=== PATIENT | male | born 1970 | race African-American/Black ===

== ENCOUNTER 2018-02-23 12:31 | Emergency (ER) | payer SELFPAY ==
[~2018-02-23] VITALS: Ht 175.3 cm; Wt 104.3 kg
[2018-02-23 12:40] VITALS: BP 153/91
[2018-02-23] MEDS ORDERED: CLIN300C8 PO (13:53)
--- NOTE | 2018-02-23 13:59 | PHYS DOC ---
Adult General Chief Complaint Chief Complaint: EYE PROBLEMS HPI HPI 47-year-old male presents with 4 day history of left-sided upper eyelid swelling. The patient has had hordeolum in the past, but they've never been this bad. He comes in today because this one has been draining for 2 days but continues to swell up every night. He has thick drainage and crusting. His vision is unchanged. He denies fever or chills. He has mild periorbital pain and a slight headache. Review of Systems Review of Systems Constitutional: Denies fever or chills [] Eyes: Swollen left eyelid[] HENT: Denies nasal congestion or sore throat [] Respiratory: Denies cough or shortness of breath [] Cardiovascular: No additional information not addressed in HPI [] GI: Denies abdominal pain, nausea, vomiting, bloody stools or diarrhea [] : Denies dysuria or hematuria [] Musculoskeletal: Denies back pain or joint pain [] Integument: Denies rash or skin lesions [] Neurologic: Denies headache, focal weakness or sensory changes [] Endocrine: Denies polyuria or polydipsia [] All other systems were reviewed and found to be within normal limits, except as documented in this note. Physical Exam Physical Exam Constitutional: Well developed, well nourished, no acute distress, non-toxic appearance. [] HENT: Swollen, erythematous left upper eyelid. There is purulent drainage along the eyelash border.[] Eyes: PERRLA, EOMI, conjunctiva normal, no discharge. [] Neck: Normal range of motion, no tenderness, supple, no stridor. [] Cardiovascular:Heart rate regular rhythm, no murmur [] Lungs & Thorax: Bilateral breath sounds clear to auscultation [] Abdomen: Bowel sounds normal, soft, no tenderness, no masses, no pulsatile masses. [] Skin: Warm, dry, no erythema, no rash. [] Back: No tenderness, no CVA tenderness. [] Extremities: No tenderness, no cyanosis, no clubbing, ROM intact, no edema. [] Neurologic: Alert and oriented X 3, normal motor function, normal sensory function, no focal deficits noted. [] Psychologic: Affect normal, judgement normal, mood normal. [] EKG EKG [] Radiology/Procedures Radiology/Procedures [] Course & Med Decision Making Course & Med Decision Making Pertinent Labs and Imaging studies reviewed. (See chart for details) I believe the patient has a hordeolum. He has thick drainage at this time. I cannot tell exactly where straining from. Given the drainage and continued inflammation I am mildly concerned about a cellulitis developing. I will go ahead and treat him with clindamycin for 7 days. Also advised to continue warm compresses multiple times a day. [] Dragon Disclaimer Dragon Disclaimer This electronic medical record was generated, in whole or in part, using a voice recognition dictation system. Departure Departure: Impression: Primary Impression: Hordeolum externum left upper eyelid Disposition: 01 HOME, SELF-CARE Condition: STABLE Patient Instructions: Sty Michelle Clindamycin Hcl (CLINDAMYCIN HCL) 300 Mg Capsule 1 CAP PO TID, #21 CAP Prov: SALIMA WRIGHT DO 02/23/18 SALIMA WRIGHT DO Feb 23, 2018 13:59
== END 2018-02-23 14:03 | disposition home or self-care (01) ==
LOC: ER 12:31
DX: H00.014 Hordeolum externum left upper eyelid (principal); R51 Headache
CPT/HCPCS: 99283

== ENCOUNTER 2018-04-04 16:40 | Inpatient (IN) | payer OTHER ==
[~2018-04-04] VITALS: Ht 175.3 cm; Wt 112.3 kg
[~2018-04-04 16:40] MED LIST: CLIN300C8 PO
[2018-04-04] MEDS ORDERED: IOHEXOL 300 MG/ML 75 ML VIAL. IV ONE (21:30)
[2018-04-04] MEDS ORDERED: IOHEXOL 240 MG/ML 50ML VIAL. PO ONE (21:30)
--- NOTE | 2018-04-04 22:06 | RAD ---
Indication: Abdominal pain, nausea, and vomiting. Technique: Axial images and coronal and sagittal reformatted images are provided. 75 mL of intravenous Omnipaque 300 was administered without complication. No comparison is available. One or more of the following individualized dose reduction techniques were utilized for this examination: 1. Automated exposure control 2. Adjustment of the mA and/or kV according to patient size 3. Use of iterative reconstruction technique Findings: There is atelectasis in the lung bases. There is a small right and trace left pleural effusion. Heart is not enlarged. There is mild fatty infiltration of the liver. Gallbladder is unremarkable. Spleen is not enlarged. Pancreas and adrenals are unremarkable. There is stranding of the perinephric fat. There is no urolithiasis. Both ureters are mildly prominent but without obstructing or nonobstructing stone apparent. Aorta is normal caliber with atheromatous disease. Lack of oral contrast limits evaluation of bowel. There is no dilated small bowel loop or mural thickening. There is questionable mural thickening in the descending colon versus incomplete distention. It is hard to exclude a mild colitis. There is no abscess or free air. Normal appendix is noted. There is bladder distention. Prostate is not enlarged. Calcified phleboliths are noted. Prostate calcifications are noted. There is subcutaneous edema. Bony structures are intact. IMPRESSION: 1. Questionable mural thickening in the descending colon, hard to exclude a mild colitis. 2. Bladder distention. 3. Mildly prominent ureters bilaterally without obstructing stone apparent. Correlate with concern for reflux. 4. Pleural effusions. Electronically signed by: Lalo Sanchez MD (04/04/2018 10:02 PM) [facility]
[2018-04-05] VITALS (7 sets, daily range): BP systolic 142–174; BP diastolic 75–104
--- NOTE | 2018-04-05 00:04 | RAD ---
PA chest and AP upright supine abdomen x-rays HISTORY: Abdominal pain, nausea and vomiting. FINDINGS: Mild cardiomegaly. Mild pleural effusions. No pneumothorax. Pulmonary interstitial thickening and allergies opacities likely edema although superimposed pneumonia is not excluded. No pneumoperitoneum. Left pelvic phleboliths. No dilated bowel loops or abnormal air-fluid levels to suggest obstruction. Bones unremarkable. IMPRESSION: No bowel obstruction evident. Pulmonary edema and small pleural effusions as described above. Electronically signed by: Sunny Edmondson MD (04/05/2018 12:01 AM) [facility]
--- NOTE | 2018-04-05 00:36 | ED.ADGEN ---
Past History Past Medical History: CHF, Diabetes, Hypertension Past Surgical History: No Surgical History Alcohol Use: None Drug Use: None Adult General Chief Complaint Chief Complaint ".. I got bad Lt. lower abd. pain... " HPI HPI Patient is a 47 year old male who presents with Lt. lower abd. pain. ( See hand written report while computer down) Review of Systems Review of Systems Constitutional: Denies fever or chills [] Eyes: Denies change in visual acuity, redness, or eye pain [] HENT: Denies nasal congestion or sore throat [] Respiratory: Denies cough or shortness of breath [] Cardiovascular: No additional information not addressed in HPI [] GI: Denies abdominal pain, nausea, vomiting, bloody stools or diarrhea [] : Denies dysuria or hematuria [] Musculoskeletal: Denies back pain or joint pain [] Integument: Denies rash or skin lesions [] Neurologic: Denies headache, focal weakness or sensory changes [] Endocrine: Denies polyuria or polydipsia [] All other systems were reviewed and found to be within normal limits, except as documented in this note. Family History Family History Hypertension Current Medications Current Medications Current Medications Medications (Trade) Dose Ordered Sig/Olivia Start Time Stop Time Status Last Admin Dose Admin Iohexol (Omnipaque 240 Mg/ml) 30 ml 1X ONCE 04/04/18 21:30 04/04/18 21:31 DC 04/04/18 21:48 30 ML Iohexol (Omnipaque 300 Mg/ml) 75 ml 1X ONCE 04/04/18 21:30 04/04/18 21:31 DC 04/04/18 21:48 75 ML See nursing for home meds Allergies Allergies Allergies Coded Allergies Type Severity Reaction Last Updated Verified No Known Drug Allergies 04/04/18 No Physical Exam Physical Exam Constitutional: Moderately acute distress, non-toxic appearance. [] HENT: Normocephalic, atraumatic, bilateral external ears normal, oropharynx moist, no oral exudates, nose normal. [] Eyes: PERRLA, EOMI, conjunctiva normal, no discharge. [] Neck: Normal range of motion, no tenderness, supple, no stridor. [] JVD Cardiovascular: Tachycardia Heart rate regular rhythm, no murmur []PMI to the left Lungs & Thorax: Bilateral breath sounds equal at apex with scattered wheezes and basilar crackles on auscultation [] Abdomen: Bowel sounds decreased, soft, lower tenderness, no masses, no pulsatile masses. Distended. Rebound to left lower Skin: Warm, diaphoretic, no erythema, no rash. [] Back: No tenderness, no CVA tenderness. [] Extremities: No tenderness, no cyanosis, no clubbing, ROM intact, no edema. [] Left psoas Neurologic: Alert and oriented X 3, normal motor function, normal sensory function, no focal deficits noted. [] Psychologic: Affect anxious, judgement normal, mood normal. [] Current Patient Data Lab Results Laboratory Tests Test 04/04/18 18:05 White Blood Count 12.2 x10^3/uL (4.0-11.0) H Red Blood Count 3.44 x10^6/uL (4.30-5.70) L Hemoglobin 11.0 g/dL (13.0-17.5) L Hematocrit 33.1 % (39.0-53.0) L Mean Corpuscular Volume 96 fL (79-100) Mean Corpuscular Hemoglobin 32 pg (25-35) Mean Corpuscular Hemoglobin Concent 33 g/dL (31-37) Red Cell Distribution Width 14.2 % (11.5-14.5) Platelet Count 316 x10^3/uL (140-400) Neutrophils (%) (Auto) 83 % (31-73) H Lymphocytes (%) (Auto) 9 % (24-48) L Monocytes (%) (Auto) 7 % (0-9) Eosinophils (%) (Auto) 1 % (0-3) Basophils (%) (Auto) 0 % (0-3) Neutrophils # (Auto) 10.1 x10^3uL (1.8-7.7) H Lymphocytes # (Auto) 1.1 x10^3/uL (1.0-4.8) Monocytes # (Auto) 0.8 x10^3/uL (0.0-1.1) Eosinophils # (Auto) 0.1 x10^3/uL (0.0-0.7) Basophils # (Auto) 0.0 x10^3/uL (0.0-0.2) Prothrombin Time 11.0 SEC (9.4-11.4) Prothrombin Time INR 1.1 (0.9-1.1) PTT 25 SEC (23-33) Urine Collection Type Unknown Urine Color Yellow Urine Clarity Clear Urine pH 5.5 Urine Specific [place] 1.025 Urine Protein >100 mg/dl (NEG-TRACE) Urine Glucose (UA) Neg mg/dL (NEG) Urine Ketones (Stick) Neg mg/dL (NEG) Urine Blood Large (NEG) Urine Nitrite Neg (NEG) Urine Bilirubin Neg (NEG) Urine Urobilinogen Dipstick 1 mg/dL (0.2 mg/dL) Urine Leukocyte Esterase Neg (NEG) Urine RBC 6-10 /HPF (0-2) Urine WBC 1-4 /HPF (0-4) Urine Squamous Epithelial Cells Few /LPF Urine Bacteria 0 /HPF (0-FEW) Urine Hyaline Casts Few /HPF Sodium Level 143 mmol/L (136-145) Potassium Level 3.4 mmol/L (3.5-5.1) L Chloride Level 108 mmol/L (98-107) H Carbon Dioxide Level 28 mmol/L (21-32) Anion Gap 7 (6-14) Blood Urea Nitrogen 17 mg/dL (8-26) Creatinine 1.3 mg/dL (0.7-1.3) Estimated GFR (Cockcroft-Gault) 71.6 Glucose Level 88 mg/dL (70-99) Calcium Level 8.7 mg/dL (8.5-10.1) Total Bilirubin 0.7 mg/dL (0.2-1.0) Direct Bilirubin 0.2 mg/dL (0.0-0.2) Aspartate Amino Transferase (AST) 38 U/L (15-37) H Alanine Aminotransferase (ALT) 68 U/L (16-63) H Alkaline Phosphatase 99 U/L (46-116) Creatine Kinase 789 U/L (39-308) H Creatine Kinase MB (Mass) 3.9 ng/mL (0.0-3.6) H Creatine Kinase MB Relative Index 0.5 % (0-4) Troponin I Quantitative 0.028 ng/mL (0-0.055) NR-Lmx-C-Type Natriuretic Peptide 1428 pg/mL (0-124) H Total Protein 6.8 g/dL (6.4-8.2) Albumin 3.1 g/dL (3.4-5.0) L Lipase 126 U/L (73-393) EKG EKG My interpretation EKG shows a sinus rhythm at 90 bpm.[] Radiology/Procedures Radiology/Procedures I interpretation of chest x-ray shows increased cephalization and cardiomegaly consistent with CHF Abdomen film shows no free air in the diaphragm. Course & Med Decision Making Course & Med Decision Making Pertinent Labs and Imaging studies reviewed. (See chart for details). Discussed presentation, testing and treatment plan with Dr.Madi- Zenon haywood for further treatment and evaluation of colitis. Cardiology consult for CHF. [] Final Impression Final Impression 1. Abd. Pain 2. Colitis 3. CHF 4. Leukocytosis 5. Anemia 6. Malnutrition[] Dragon Disclaimer Dragon Disclaimer This electronic medical record was generated, in whole or in part, using a voice recognition dictation system. CHRISTIANE KENDALL MD Apr 05, 2018 00:36
[2018-04-05] MEDS ORDERED: levoFLOXacin 500 MG TABLET PO ONE (01:00)
[2018-04-05] MEDS ORDERED: ONDANSETRON PF 4 MG/2 ML VIAL. IV PRN (01:00)
[2018-04-05] MEDS ORDERED: metroNIDAZOLE 500 MG TABLET PO ONE (01:15)
[2018-04-05] MEDS ORDERED: LISI40TA PO (02:47)
[2018-04-05] MEDS ORDERED: ATORVASTATIN CA80 MG PO (02:47)
[2018-04-05] MEDS ORDERED: FURO-68 PO (02:47)
[2018-04-05] MEDS ORDERED: INSU100I13 SQ (02:47)
[2018-04-05] MEDS ORDERED: CARV25TA2 PO (02:47)
--- NOTE | 2018-04-05 03:56 | EKG ---
[address] [id number] Test Date: 2018-04-04 Test Time: 18:23:23 Pat Name: GARRET WATTS Department: Room: 121 A Gender: M [employer] Attendant: : 1970 Requested By: CHRISTIANE KENDALL Order Number: [id number] Reading MD: Liban Ferrell MD Measurements Intervals [place] Rate: 90 P: 45 MA: 198 QRS: -3 QRSD: 82 T: 72 QT: 404 QTc: 499 Interpretive Statements SINUS RHYTHM Electronically Signed On 04-09-2018 10:54:45 CDT by Liban Ferrell MD
[2018-04-05 06:58] LABS: HEMATOCRIT 33.1 % (39.0-53.0); MEAN CORPUSCULAR HEMOGLOBIN 32 pg (25-35); MEAN CORPUSCULAR VOLUME 96 fL (79-100); RED BLOOD COUNT 3.44 x10^6/uL (4.30-5.70); WHITE BLOOD COUNT 12.2 x10^3/uL (4.0-11.0)
[2018-04-05 06:59] LABS: BASO % 0 % (0-3); EOS # 0.1 x10^3/uL (0.0-0.7); EOS % 1 % (0-3); LYMPH # 1.1 x10^3/uL (1.0-4.8); LYMPH % 9 % (24-48); MEAN CORPUSCULAR HGB CONC 33 g/dL (31-37); MONO # 0.8 x10^3/uL (0.0-1.1); MONO % 7 % (0-9); NEUT # 10.1 x10^3uL (1.8-7.7); NEUT % 83 % (31-73); PLATELET COUNT 316 x10^3/uL (140-400); RED CELL DISTRIBUTION WIDTH 14.2 % (11.5-14.5)
[2018-04-05 07:02] LABS: ALBUMIN 3.1 g/dL (3.4-5.0); CALCIUM 8.7 mg/dL (8.5-10.1); CREATININE 1.3 mg/dL (0.7-1.3); DIRECT BILIRUBIN 0.2 mg/dL (0.0-0.2); GFR 71.6; POTASSIUM 3.4 mmol/L (3.5-5.1); TOTAL BILIRUBIN 0.7 mg/dL (0.2-1.0); TOTAL PROTEIN 6.8 g/dL (6.4-8.2)
[2018-04-05 07:08] LABS: BILIRUBIN,URINE NEG (NEG); CLARITY,URINE CLEAR; COLOR,URINE YELLOW; GLUCOSE,URINE NEG (NEG)
[2018-04-05 07:09] LABS: NITRITE,URINE NEG (NEG); UROBILINOGEN,URINE 1 mg/dL (0.2 mg/dL)
[2018-04-05 07:10] LABS: BACTERIA,URINE 0 /HPF (0-FEW); HYALINE CASTS, URINE FEW /HPF; SQUAMOUS EPITHELIAL CELL,UR FEW /LPF
[2018-04-05] MEDS: INSULIN LISPRO 300 UNITS/3 ML INSULN.PEN. SQ SCH ×3 (08:00→17:00)
[2018-04-05] MEDS ORDERED: POTASSIUM CHLORIDE 20 MEQ TABLET.ER. PO ONE (08:00)
[2018-04-05] MEDS ORDERED: DEXTROSE 50% 25 GM / 50ML DISP.SYRIN. IV PRN (08:00)
[2018-04-05] MEDS: levoFLOXacin 500 MG TABLET PO SCH (08:37)
[2018-04-05] MEDS: CARVEDILOL 12.5 MG TABLET PO SCH ×2 (08:37→17:22)
[2018-04-05] MEDS: FUROSEMIDE 40 MG/4 ML VIAL IVP SCH (08:38)
--- NOTE | 2018-04-05 09:09 | PDOC2 ---
CARAMIGUELANGEL Cassie [employer]ANITIES DIVISION CHAIR 04/05/18 0909: CONSULT Date of Admission DATE: 04/05/18 TIME: 09:03 Reason for Consult: CHF, HTN Problem List Problems Medical Problems: (1) Abdominal pain Status: Acute History of Present Illness Mr Garcia is a 47 year old male who moved here within the last 6 months from [place]. He has history of NICM, CHF, HTN and diabetes. He presents with complaints of sudden onset of severe abdominal pain. He denies any nausea, vomiting, diarrhea, fever, chills. He was noted to have mild pulmonary congestion so consult was called. He does report that he has had more dyspnea on exertion in the last couple weeks limiting his functional capacity to about 20 yards. He complains of 3 pillow orthopnea for several days and episodes of PND. He reports chronic mild edema without significant increase but does think he is carrying more fluid around his abdomen. He reports a 30lb weight gain since moving here. He denies any chest discomfort, palpitations, lightheadedness or syncope. He reports that his cardiac function was initially at 30 % but that he needed no stents during heart cath. He says that during follow up prior to moving he was told that his heart function had normalized. He has not established with a scalloper since moving here. Cardiovascular: CHF, HTN, AL, hyperipidemia GI: Other (colitis) Endocrine: Diabetes Past Surgical History non contributory Family History: Kidney Disease, Other (CHF, Arthritis) Social History non smoker, no significant ETOH, no illicit drug use. He reports prior history fo ETOH but had stopped drinking prior to diagnosis of CMP. Current Medications Current Medications Iohexol (Omnipaque 240 Mg/ml) 30 ml 1X ONCE PO Last administered on 04/04/18at 21:48; Start 04/04/18 at 21:30; Stop 04/04/18 at 21:31; Status DC Iohexol (Omnipaque 300 Mg/ml) 75 ml 1X ONCE IV Last administered on 04/04/18at 21:48; Start 04/04/18 at 21:30; Stop 04/04/18 at 21:31; Status DC Levofloxacin (Levaquin) 500 mg 1X ONCE PO Last administered on 04/05/18at 02:40 ; Start 04/05/18 at 01:00; Stop 04/05/18 at 01:07; Status DC Metronidazole (Flagyl) 500 mg 1X ONCE PO Last administered on 04/05/18at 02:40 ; Start 04/05/18 at 01:15; Stop 04/05/18 at 01:16; Status DC Ondansetron HCl (Zofran) 4 mg PRN Q4HRS PRN IV NAUSEA/VOMITING; Start 04/05/18 at 01:00; Stop 04/06/18 at 00:59 Metronidazole 100 ml @ 100 mls/hr Q8HRS IV Last administered on 04/05/18at 05: 41; Start 04/05/18 at 06:00 Levofloxacin (Levaquin) 500 mg DAILY PO Last administered on 04/05/18at 08:37; Start 04/05/18 at 09:00 Furosemide (Lasix) 40 mg DAILY IVP Last administered on 04/05/18at 08:38; Start 04/05/18 at 09:00 Carvedilol (Coreg) 25 mg BIDWMEALS PO Last administered on 04/05/18at 08:37; Start 04/05/18 at 08:00 Insulin Human Lispro (HumaLOG) 0-5 UNITS TIDWMEALS SQ ; Start 04/05/18 at 08:00 Dextrose 12.5 gm PRN Q15MIN PRN IV SEE COMMENTS; Start 04/05/18 at 08:00 Potassium Chloride (Klor-Con) 40 meq 1X ONCE PO Last administered on at 08:38; Start 04/05/18 at 08:00; Stop 04/05/18 at 08:10; Status DC Active Scripts Active Reported Lantus Solostar (Insulin Glargine,Hum.rec.anlog) 100 Unit/1 Ml Insuln.pen 30 Unit SQ BID Lisinopril 40 Mg Tablet 40 Mg PO BID LAST DOSE GIVEN: DATE: TIME: NEXT DOSE DUE: DATE: TIME: Atorvastatin Calcium 80 Mg Tablet 80 Mg PO QHS LAST DOSE GIVEN: DATE: TIME: NEXT DOSE DUE: DATE: TIME: Carvedilol 25 Mg Tablet 25 Mg PO BIDWMEALS LAST DOSE GIVEN: DATE: TIME: NEXT DOSE DUE: DATE: TIME: Lasix (Furosemide) 40 Mg Tablet 40 Mg PO BID LAST DOSE GIVEN: DATE: TIME: NEXT DOSE DUE: DATE: TIME: Allergies: Coded Allergies: No Known Drug Allergies (Unverified , 04/04/18) Review of System as per HPI VITALS Vital Signs Date Time Temp Pulse Resp B/P (MAP) Pulse Ox O2 Delivery O2 Flow Rate FiO2 04/05/18 08:37 75 154/98 04/05/18 05:12 98.2 20 94 Room Air Labs Laboratory Tests Test 04/04/18 18:05 04/05/18 05:20 04/05/18 07:23 White Blood Count 12.2 x10^3/uL (4.0-11.0) Red Blood Count 3.44 x10^6/uL (4.30-5.70) Hemoglobin 11.0 g/dL (13.0-17.5) Hematocrit 33.1 % (39.0-53.0) Mean Corpuscular Volume 96 fL (79-100) Mean Corpuscular Hemoglobin 32 pg (25-35) Mean Corpuscular Hemoglobin Concent 33 g/dL (31-37) Red Cell Distribution Width 14.2 % (11.5-14.5) Platelet Count 316 x10^3/uL (140-400) Neutrophils (%) (Auto) 83 % (31-73) Lymphocytes (%) (Auto) 9 % (24-48) Monocytes (%) (Auto) 7 % (0-9) Eosinophils (%) (Auto) 1 % (0-3) Basophils (%) (Auto) 0 % (0-3) Neutrophils # (Auto) 10.1 x10^3uL (1.8-7.7) Lymphocytes # (Auto) 1.1 x10^3/uL (1.0-4.8) Monocytes # (Auto) 0.8 x10^3/uL (0.0-1.1) Eosinophils # (Auto) 0.1 x10^3/uL (0.0-0.7) Basophils # (Auto) 0.0 x10^3/uL (0.0-0.2) Prothrombin Time 11.0 SEC (9.4-11.4) Prothromb Time International Ratio 1.1 (0.9-1.1) Activated Partial Thromboplast Time 25 SEC (23-33) Urine Collection Type Unknown Urine Color Yellow Urine Clarity Clear Urine pH 5.5 Urine Specific [place] 1.025 Urine Protein >100 mg/dl (NEG-TRACE) Urine Glucose (UA) Neg mg/dL (NEG) Urine Ketones (Stick) Neg mg/dL (NEG) Urine Blood Large (NEG) Urine Nitrite Neg (NEG) Urine Bilirubin Neg (NEG) Urine Urobilinogen Dipstick 1 mg/dL (0.2 mg/dL) Urine Leukocyte Esterase Neg (NEG) Urine RBC 6-10 /HPF (0-2) Urine WBC 1-4 /HPF (0-4) Urine Squamous Epithelial Cells Few /LPF Urine Bacteria 0 /HPF (0-FEW) Urine Hyaline Casts Few /HPF Sodium Level 143 mmol/L (136-145) Potassium Level 3.4 mmol/L (3.5-5.1) Chloride Level 108 mmol/L (98-107) Carbon Dioxide Level 28 mmol/L (21-32) Anion Gap 7 (6-14) Blood Urea Nitrogen 17 mg/dL (8-26) Creatinine 1.3 mg/dL (0.7-1.3) Estimated GFR (Cockcroft-Gault) 71.6 Glucose Level 88 mg/dL (70-99) Calcium Level 8.7 mg/dL (8.5-10.1) Total Bilirubin 0.7 mg/dL (0.2-1.0) Direct Bilirubin 0.2 mg/dL (0.0-0.2) Aspartate Amino Transf (AST/SGOT) 38 U/L (15-37) Alanine Aminotransferase (ALT/SGPT) 68 U/L (16-63) Alkaline Phosphatase 99 U/L (46-116) Creatine Kinase 789 U/L (39-308) Creatine Kinase MB (Mass) 3.9 ng/mL (0.0-3.6) Creatine Kinase MB Relative Index 0.5 % (0-4) Troponin I Quantitative 0.028 ng/mL (0-0.055) 0.028 ng/mL (0-0.055) [place]-Kpo-Q-Type Natriuretic Peptide 1428 pg/mL (0-124) Total Protein 6.8 g/dL (6.4-8.2) Albumin 3.1 g/dL (3.4-5.0) Lipase 126 U/L (73-393) Glucose (Fingerstick) 67 mg/dL (70-99) Images CXR - pending EKG - pending CT abd/pelvis - IMPRESSION: 1. Questionable mural thickening in the descending colon, hard to exclude a mild colitis. 2. Bladder distention. 3. Mildly prominent ureters bilaterally without obstructing stone apparent. Correlate with concern for reflux. 4. Pleural effusions. Acute abd - IMPRESSION: No bowel obstruction evident. Pulmonary edema and small pleural effusions as described above. Assessment/Plan 1. Acute decompensation of likely diastolic heart failure - reported NICM with normalized EF last year. echo for LV function. continue diuresis. Coreg and lisinopril added. agree with diuresis. request records. 2. accelerated hypertension - coreg started, add lisinopril. Improved control. May consider outpatient renal duplex if pressures are difficult to control on current Rx. 3. colitis - per IM 4. Hyperlipidemia - check lipids 5. hypokalemia - replace 6. diabetes mellitus - per IM MELVI PLAZA MD 04/05/18 1645: CONSULT Assessment/Plan 1. Acute decompensation of probable diastolic heart failure - reported NICM with normalized EF last year. Continue diuresis. Add Coreg and lisinopril. Echocardiogram today for LV function. Echo for LV function. 2. accelerated hypertension - improving today. Addition of Coreg and lisinopril as above. 3. colitis - per IM 4. Hyperlipidemia - check lipids 5. hypokalemia - replace 6. diabetes mellitus - per IM MIGUELANGEL MARROQUIN APRN Apr 05, 2018 09:09 MELVI PLAZA MD Apr 05, 2018 16:45
--- NOTE | 2018-04-05 15:04 | HP ---
ADMIT DATE: 04/05/2018 HISTORY OF PRESENT ILLNESS: The patient is a 47-year-old male patient who came to the Emergency Room with a complaint of left lower abdominal pain. He also complained of nausea, vomited once, and came to the Emergency Room. His pain was extremely severe and intolerable. He denied any diarrhea. Denied any chills, rigors, or fever and he was evaluated in the Emergency Room and was found to have mural thickening of the descending colon. It is hard to exclude mild colitis. He had bladder distention and mildly prominent ureters bilaterally without obstructing stones apparent with concern for reflux. He has also pleural effusion. He was admitted and was started on levofloxacin as well as Flagyl for treatment of colitis. PAST MEDICAL HISTORY: Significant for hypertension, type 2 diabetes, hyperlipidemia. He apparently also known to have nonischemic cardiomyopathy with an ejection fraction of only 30%. He has also history of right groin abscess. PAST SURGICAL HISTORY: Right groin abscess incision and drainage and application of wound VAC. ALLERGIES: The patient has no known drug allergies. MEDICATIONS: He is currently on following medications: He is on atorvastatin calcium 80 mg at bedtime, carvedilol 25 mg twice a day, lisinopril 40 mg twice a day, furosemide 40 mg twice a day. He is on Lantus insulin 30 units twice a day. FAMILY HISTORY: He has 1 older brother who is healthy. He does not know his biological father. His mother is alive, currently on hemodialysis for end-stage renal disease. She has hypertension and rheumatoid arthritis. SOCIAL HISTORY: He is , has 1 biological daughter. He never smoked, does not drink alcohol or use recreational drugs. 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 REVIEW OF SYSTEMS: The patient denied any blurring of vision, cataract, glaucoma, or macular degeneration. Denied any earache, tinnitus, or sensorineural deafness. Denied any nosebleeds, stuffy nose, or postnasal drip. Denied any sore throat, sore tongue, toothache, hoarseness of voice, or difficulty swallowing. Denied any nausea, vomiting, diarrhea, or constipation. Denied any hematemesis, melena, or hematochezia. Denied any dysuria or frequency. He denied any chest pain. Did complain of shortness of breath, cough, phlegm, or hemoptysis. PHYSICAL EXAMINATION: GENERAL: When I examined him, he looked well and was clearly in no apparent respiratory distress. No pallor, jaundice, cyanosis, or thyromegaly. No jugular venous distension. He has mild bilateral limb edema, more so on the left than right. VITAL SIGNS: His heart rate was 81, blood pressure was 142/84, temperature was 98.3, respiratory rate was 18, and oxygen saturation was 95% on room air. HEAD, EYES, EARS, NOSE, AND THROAT: Showed normocephalic, atraumatic. NECK: Supple. HEART: Showed normal first and second heart sounds with no gallop, rub, or murmur. CHEST: Clear to auscultation. No crepitation or rhonchi. ABDOMEN: Distended, soft, nontender. No guarding or rigidity. No organomegaly. All hernial orifices intact. Bowel sounds normal. NEUROLOGIC: He was awake, alert, responding appropriately. Cranial nerves intact. He moves his extremities without difficulty and ambulates without assistance or assistive devices. LABORATORY DATA: His lab work this morning showed a white cell count of 12,200, hemoglobin 11, hematocrit 33, MCV 96, and platelet count of 316,000 with normal manual differential. His chemistry showed serum sodium of 143, potassium 3.4, chloride 108, bicarbonate 28, anion gap of 7, BUN 17, creatinine 1.3, estimated GFR was 71 mL per minute. Her glucose was 88, calcium was 8.7. Total bilirubin and alkaline phosphatase normal. AST and ALT slightly elevated. His CK was high at 789. First set of cardiac enzymes showed troponin to be 0.028. B-type natriuretic peptide was 1428. Total protein was 6.8, albumin 3.1. Lipase was 126. His prothrombin time was 11, INR 1.1, aPTT was 25. Urinalysis showed the urine was yellow, clear, with a pH of 5.5, specific gravity of 1.025 with large amount of protein. The urine was negative for glucose and ketones, there was large amount of blood, negative for nitrite and leukocyte esterase. There were 6-10 rbc's, 1-4 wbc's, and very few bacteria. He has an acute abdomen series which showed mild cardiomegaly, mild pleural effusion, no pneumothorax, pulmonary interstitial thickening and opacities, likely edema, although superimposed pneumonia is not excluded. No pneumoperitoneum, left pelvic phlebitis, no dilated bowel loops or abnormal air fluid levels to suggest obstruction. Bones are unremarkable. ASSESSMENT AND PLAN: The patient was admitted with abdominal pain due to colitis. He was also diagnosed with congestive heart failure, leukocytosis, anemia, and malnutrition. He was started on IV Flagyl and oral levofloxacin. Continue with all his other medications. We did consult the cardiology team given that he has nonischemic cardiomyopathy. We did receive some records from his hospital in [place]. GUANAKO YOUNG MD DR: MONSERRAT/deann JOB#: [id number] / [id number]
[2018-04-05] MEDS: LISINOPRIL 5 MG TABLET. PO SCH (15:20)
[2018-04-05] MEDS: LACTOBACILLUS RHAMNOSUS GG 1 CAPSULE. PO SCH (20:40)
[2018-04-06 05:46] VITALS: BP 145/88
[2018-04-06 06:13] LABS: HEMOGLOBIN 10.4 g/dL (13.0-17.5); RED BLOOD COUNT 3.13 x10^6/uL (4.30-5.70); RED CELL DISTRIBUTION WIDTH 13.7 % (11.5-14.5)
[2018-04-06 06:33] LABS: ALBUMIN 2.9 g/dL (3.4-5.0); ALBUMIN/GLOBULIN RATIO 0.8 (1.0-1.7); C REACTIVE PROTEIN 1.9 mg/L (0-3.3); CALCIUM 8.8 mg/dL (8.5-10.1); CREATININE 1.6 mg/dL (0.7-1.3); GFR 56.3; POTASSIUM 3.9 mmol/L (3.5-5.1); TOTAL BILIRUBIN 0.9 mg/dL (0.2-1.0); TOTAL PROTEIN 6.5 g/dL (6.4-8.2)
[2018-04-06] MEDS: CARVEDILOL 12.5 MG TABLET PO SCH ×2 (07:41→17:16)
[2018-04-06] MEDS: INSULIN LISPRO 300 UNITS/3 ML INSULN.PEN. SQ SCH ×3 (08:00→17:00)
[2018-04-06] MEDS: POTASSIUM CHLORIDE 20 MEQ TABLET.ER. PO SCH (08:11)
[2018-04-06] MEDS: LACTOBACILLUS RHAMNOSUS GG 1 CAPSULE. PO SCH ×2 (08:39→21:14)
[2018-04-06] MEDS: levoFLOXacin 500 MG TABLET PO SCH (08:39)
[2018-04-06] MEDS: LISINOPRIL 5 MG TABLET. PO SCH (08:40)
[2018-04-06] MEDS: FUROSEMIDE 40 MG/4 ML VIAL IVP SCH (08:40)
[2018-04-06 11:00] VITALS: BP 143/89
[2018-04-06 16:00] VITALS: BP_SYST 134; BP_SYST 137; BP_DIAS 78; BP_DIAS 90
[2018-04-06 19:10] VITALS: BP 143/87
--- NOTE | 2018-04-06 19:40 | PDOC ---
SUBJECTIVE: Patient states he's had no recurrance of abdominal pain since sometime yesterday. Appetite intact, no nausea or vomitting, no BM however he is passing gas. He feels lack of BM is due to his liquid diet, he wants to know if we can advance his diet. Cardiology has seen the patient and reviewed his echocardiogram and a prior. Patient currently at his baseline, they recommend continue diuresis and have added coreg and lisinopril. They advised patient to follow up with them outpatient in two weeks. Patient's vitals have been stable and other than hunger he denies any complaints. OBJECTIVE: Problems: Problems Medical Problems: (1) Abdominal pain Status: Acute BUN 17, Cr 1.6 h/o CKD. ESR 18, WBC 12.2 from 10 yesterday, Hb 11 from 10.4. Vital Signs: Vital Signs Date Time Temp Pulse Resp B/P (MAP) Pulse Ox O2 Delivery O2 Flow Rate FiO2 04/06/18 19:10 98.0 70 20 143/87 (105) 98 Room Air I & O Intake and Output 04/06/18 06:59 Intake Total 1680 ml Output Total 1225 ml Balance 455 ml Intake Oral 1680 ml Output Urine Total 1225 ml Labs: Laboratory Tests Test 04/05/18 05:20 04/05/18 07:23 04/05/18 09:25 04/05/18 11:08 Troponin I Quantitative 0.028 ng/mL (0-0.055) 0.018 ng/mL (0-0.055) Triglycerides Level 44 mg/dL (0-150) Cholesterol Level 91 mg/dL (0-200) LDL Cholesterol, Calculated 42 mg/dL (0-100) VLDL Cholesterol, Calculated 8 mg/dL (0-40) Non-HDL Cholesterol Calculated 50 mg/dL (0-129) HDL Cholesterol 41 mg/dL (40-60) Cholesterol/HDL Ratio 2.0 Glucose (Fingerstick) 67 mg/dL (70-99) 79 mg/dL (70-99) Test 04/05/18 16:49 04/05/18 20:26 04/06/18 05:45 04/06/18 07:48 Glucose (Fingerstick) 61 mg/dL (70-99) 131 mg/dL (70-99) 98 mg/dL (70-99) White Blood Count 10.0 x10^3/uL (4.0-11.0) Red Blood Count 3.13 x10^6/uL (4.30-5.70) Hemoglobin 10.4 g/dL (13.0-17.5) Hematocrit 30.0 % (39.0-53.0) Mean Corpuscular Volume 96 fL (79-100) Mean Corpuscular Hemoglobin 33 pg (25-35) Mean Corpuscular Hemoglobin Concent 35 g/dL (31-37) Red Cell Distribution Width 13.7 % (11.5-14.5) Platelet Count 284 x10^3/uL (140-400) Erythrocyte Sedimentation Rate 18 (0-15) Sodium Level 141 mmol/L (136-145) Potassium Level 3.9 mmol/L (3.5-5.1) Chloride Level 105 mmol/L (98-107) Carbon Dioxide Level 30 mmol/L (21-32) Anion Gap 6 (6-14) Blood Urea Nitrogen 17 mg/dL (8-26) Creatinine 1.6 mg/dL (0.7-1.3) Estimated GFR (Cockcroft-Gault) 56.3 BUN/Creatinine Ratio 11 (6-20) Glucose Level 96 mg/dL (70-99) Calcium Level 8.8 mg/dL (8.5-10.1) Total Bilirubin 0.9 mg/dL (0.2-1.0) Aspartate Amino Transf (AST/SGOT) 21 U/L (15-37) Alanine Aminotransferase (ALT/SGPT) 50 U/L (16-63) Alkaline Phosphatase 89 U/L (46-116) C-Reactive Protein 1.9 mg/L (0-3.3) Total Protein 6.5 g/dL (6.4-8.2) Albumin 2.9 g/dL (3.4-5.0) Albumin/Globulin Ratio 0.8 (1.0-1.7) Test 04/06/18 12:05 04/06/18 17:30 Glucose (Fingerstick) 123 mg/dL (70-99) 115 mg/dL (70-99) Physical Exam: GEN: NAD, AOx3, up in chair talking with visitors on my arrival HEENT: NCAT, membranes moist, nose/throat clear NECK: supple, no lymphadenopathy CVS: normal cardiac sounds no murmur PULM: CTAB with good air movment no respiratory distress ABD: mildly distended, soft, no tenderness, good BS x 4 EXT: 2+ pitting LE edema b/l (pt states baseline), no clubbing or cyanosis NEURO: CN II-XII appear intact, no lateralizing deficits ASSESSMENT: 1. Colitis (improving, will advance diet) 2. Hematuria (repeat UA) 3. Acute decompensation NICM: continue diuresis per cardio 4. HTN: continue coreg/lisinopril per cardio PLAN: If tolerates diet and no setbacks plan d/c home tomorrow VICKY PETIT DO Apr 06, 2018 19:40
[2018-04-07 05:44] LABS: BILIRUBIN,URINE NEG (NEG); CLARITY,URINE CLEAR; COLOR,URINE YELLOW; GLUCOSE,URINE NEG (NEG)
[2018-04-07 05:45] LABS: BACTERIA,URINE 0 /HPF (0-FEW); NITRITE,URINE NEG (NEG); RBC,URINE RARE /HPF (0-2); SQUAMOUS EPITHELIAL CELL,UR OCC /LPF; UROBILINOGEN,URINE 0.2 mg/dL (0.2 mg/dL); WBC,URINE RARE /HPF (0-4)
[2018-04-07 05:59] VITALS: BP 149/87
[2018-04-07] MEDS ORDERED: LEVO500T59 PO (08:48)
[2018-04-07] MEDS ORDERED: FURO-68 PO (08:48)
[2018-04-07] MEDS ORDERED: POTA20TA4 PO (08:48)
[2018-04-07] MEDS ORDERED: LISI-338 PO (08:48)
[2018-04-07] MEDS ORDERED: METR500T PO (08:48)
[2018-04-07] MEDS: LISINOPRIL 5 MG TABLET. PO SCH (08:57)
[2018-04-07] MEDS: LACTOBACILLUS RHAMNOSUS GG 1 CAPSULE. PO SCH (08:57)
[2018-04-07] MEDS: FUROSEMIDE 40 MG/4 ML VIAL IVP SCH (08:58)
[2018-04-07] MEDS: levoFLOXacin 500 MG TABLET PO SCH (08:58)
[2018-04-07] MEDS: POTASSIUM CHLORIDE 20 MEQ TABLET.ER. PO SCH (08:58)
[2018-04-07] MEDS ORDERED: DOCUSATE SODIUM 100 MG CAPSULE PO SCH (09:00)
[2018-04-07 09:02] VITALS: BP 149/87
[2018-04-07] MEDS: CARVEDILOL 12.5 MG TABLET PO SCH (09:02)
--- NOTE | 2018-04-07 10:06 | PDOC3 ---
Discharge Summary Visit Information Date of Admission: Apr 05, 2018 Date of Discharge: Apr 07, 2018 Admitting Diagnosis: colitis, congestive heart failure, anemia, malnutrition Final Diagnosis Problems Medical Problems: (1) Abdominal pain Status: Acute Brief Hospital Course Allergies Allergies Coded Allergies Type Severity Reaction Last Updated Verified No Known Drug Allergies 04/04/18 No Vital Signs Vital Signs Date Time Temp Pulse Resp B/P (MAP) Pulse Ox O2 Delivery O2 Flow Rate FiO2 04/07/18 09:02 69 149/87 04/07/18 05:59 97.8 18 97 Room Air Lab Results Laboratory Tests Test 04/05/18 11:08 04/05/18 16:49 04/05/18 20:26 04/06/18 05:45 Glucose (Fingerstick) 79 mg/dL (70-99) 61 mg/dL (70-99) 131 mg/dL (70-99) White Blood Count 10.0 x10^3/uL (4.0-11.0) Red Blood Count 3.13 x10^6/uL (4.30-5.70) Hemoglobin 10.4 g/dL (13.0-17.5) Hematocrit 30.0 % (39.0-53.0) Mean Corpuscular Volume 96 fL (79-100) Mean Corpuscular Hemoglobin 33 pg (25-35) Mean Corpuscular Hemoglobin Concent 35 g/dL (31-37) Red Cell Distribution Width 13.7 % (11.5-14.5) Platelet Count 284 x10^3/uL (140-400) Erythrocyte Sedimentation Rate 18 (0-15) Sodium Level 141 mmol/L (136-145) Potassium Level 3.9 mmol/L (3.5-5.1) Chloride Level 105 mmol/L (98-107) Carbon Dioxide Level 30 mmol/L (21-32) Anion Gap 6 (6-14) Blood Urea Nitrogen 17 mg/dL (8-26) Creatinine 1.6 mg/dL (0.7-1.3) Estimated GFR (Cockcroft-Gault) 56.3 BUN/Creatinine Ratio 11 (6-20) Glucose Level 96 mg/dL (70-99) Calcium Level 8.8 mg/dL (8.5-10.1) Total Bilirubin 0.9 mg/dL (0.2-1.0) Aspartate Amino Transf (AST/SGOT) 21 U/L (15-37) Alanine Aminotransferase (ALT/SGPT) 50 U/L (16-63) Alkaline Phosphatase 89 U/L (46-116) C-Reactive Protein 1.9 mg/L (0-3.3) Total Protein 6.5 g/dL (6.4-8.2) Albumin 2.9 g/dL (3.4-5.0) Albumin/Globulin Ratio 0.8 (1.0-1.7) Test 04/06/18 07:48 04/06/18 12:05 04/06/18 17:30 04/06/18 20:43 Glucose (Fingerstick) 98 mg/dL (70-99) 123 mg/dL (70-99) 115 mg/dL (70-99) 174 mg/dL (70-99) Test 04/07/18 05:20 04/07/18 07:25 Urine Collection Type Unknown Urine Color Yellow Urine Clarity Clear Urine pH 5.0 Urine Specific [place] 1.010 Urine Protein 100 mg/dl (NEG-TRACE) Urine Glucose (UA) Neg mg/dL (NEG) Urine Ketones (Stick) Neg mg/dL (NEG) Urine Blood Mod (NEG) Urine Nitrite Neg (NEG) Urine Bilirubin Neg (NEG) Urine Urobilinogen Dipstick 0.2 mg/dL (0.2 mg/dL) Urine Leukocyte Esterase Trace (NEG) Urine RBC Rare /HPF (0-2) Urine WBC Rare /HPF (0-4) Urine Squamous Epithelial Cells Occ /LPF Urine Bacteria 0 /HPF (0-FEW) Glucose (Fingerstick) 156 mg/dL (70-99) Brief Hospital Course Mr. Garcia is a 47 old male who presented with sudden onset severe left lower quadrant abdominal pain on April 05 to the emergency department. The pain was so severe had him doubled over and he had episodes of nausea and emesis. He was extensively evaluated in the emergency department and CT evaluation revealed some colon wall thickening consistent with colitis. IV hydration as well as Levaquin and Flagyl were initiated. Patient was also noted to be in congestive heart failure, he had prior history of nonischemic cardiomyopathy with an ejection fraction of 30%. The cardiology team was consulted and an echocardiogram revealed the patient's cardiac function was at his baseline. Medication adjustments included Coreg, lisinopril, Lasix, and potassium and the patient was advised to follow-up with his bread packer Dr. Bardales as soon as possible upon hospital discharge. The patient has had no abdominal pain since day 1 of his hospital stay. His diet was advanced yesterday and he's been eating and drinking well. He still hasn't had a bowel movement but has had the urge to and has been passing gas. He reports he feels as if he is fully recovered and is requesting discharge today. Discharge Information Condition at Discharge: Improved Follow Up: Weeks (follow-up with Dr. Johnson this week and with Dr. Bardales for next available evaluation.) Disposition/Orders: D/C to Home Dischare Medications Current Medications Iohexol (Omnipaque 240 Mg/ml) 30 ml 1X ONCE PO Last administered on 04/04/18at 21:48; Start 04/04/18 at 21:30; Stop 04/04/18 at 21:31; Status DC Iohexol (Omnipaque 300 Mg/ml) 75 ml 1X ONCE IV Last administered on 04/04/18at 21:48; Start 04/04/18 at 21:30; Stop 04/04/18 at 21:31; Status DC Levofloxacin (Levaquin) 500 mg 1X ONCE PO Last administered on 04/05/18at 02:40 ; Start 04/05/18 at 01:00; Stop 04/05/18 at 01:07; Status DC Metronidazole (Flagyl) 500 mg 1X ONCE PO Last administered on 04/05/18at 02:40 ; Start 04/05/18 at 01:15; Stop 04/05/18 at 01:16; Status DC Ondansetron HCl (Zofran) 4 mg PRN Q4HRS PRN IV NAUSEA/VOMITING; Start 04/05/18 at 01:00; Stop 04/06/18 at 00:59; Status DC Metronidazole 100 ml @ 100 mls/hr Q8HRS IV Last administered on 04/07/18at 05: 10; Start 04/05/18 at 06:00 Levofloxacin (Levaquin) 500 mg DAILY PO Last administered on 04/07/18 08:58; Start 04/05/18 at 09:00 Furosemide (Lasix) 40 mg DAILY IVP Last administered on 7/15/18at 08:58; Start 04/05/18 at 09:00 Carvedilol (Coreg) 25 mg BIDWMEALS PO Last administered on 04/07/18at 09:02; Start 04/05/18 at 08:00 Insulin Human Lispro (HumaLOG) 0-5 UNITS TIDWMEALS SQ ; Start 04/05/18 at 08:00 Dextrose 12.5 gm PRN Q15MIN PRN IV SEE COMMENTS; Start 04/05/18 at 08:00 Potassium Chloride (Klor-Con) 40 meq 1X ONCE PO Last administered on at 08:38; Start 04/05/18 at 08:00; Stop 04/05/18 at 08:10; Status DC Lisinopril (Prinivil) 5 mg DAILY PO Last administered on 04/07/18at 08:57; Start 04/05/18 at 09:30 Lactobacillus Rhamnosus (Culturelle) 1 cap BID PO Last administered on at 08:57; Start 04/05/18 at 21:00 Potassium Chloride (Klor-Con) 20 meq DAILYWBKFT PO Last administered on at 08:58; Start 04/06/18 at 08:00 Docusate Sodium (Colace) 100 mg DAILY PO Last administered on 04/07/18at 08:58; Start 04/07/18 at 09:00 Active Scripts Active Flagyl (Metronidazole) 500 Mg Tablet 1 Tab PO BID Lisinopril 5 Mg Tablet 5 Mg PO DAILY 7 Days Klor-Con M20 (Potassium Chloride) 20 Meq Tab.er.prt 20 Meq PO DAILYWBKFT 7 Days Levaquin (Levofloxacin) 500 Mg Tablet 500 Mg PO DAILY Lasix (Furosemide) 40 Mg Tablet 40 Mg PO QD 7 Days LAST DOSE GIVEN: DATE: TIME: NEXT DOSE DUE: DATE: TIME: Reported Lantus Solostar (Insulin Glargine,Hum.rec.anlog) 100 Unit/1 Ml Insuln.pen 30 Unit SQ BID Lisinopril 40 Mg Tablet 40 Mg PO BID LAST DOSE GIVEN: DATE: TIME: NEXT DOSE DUE: DATE: TIME: Atorvastatin Calcium 80 Mg Tablet 80 Mg PO QHS LAST DOSE GIVEN: DATE: TIME: NEXT DOSE DUE: DATE: TIME: Carvedilol 25 Mg Tablet 25 Mg PO BIDWMEALS LAST DOSE GIVEN: DATE: TIME: NEXT DOSE DUE: DATE: TIME: VICKY PETIT DO Apr 07, 2018 10:06
--- NOTE | 2018-04-07 14:43 | CARD ---
MR#: [id number] Date of Study: 04/05/2018 Ordering Physician: MIGUELANGEL MARROQUIN, Referring Physician: GUANAKO YOUNG, Tech: GERALDINE Starks APPROVED REPORT EXAM: Two-dimensional and M-mode echocardiogram with Doppler and color Doppler. Other Information Quality : Average INDICATION Congestive Heart Failure Abdominal Pain 2D DIMENSIONS Left Atrium(2D)4.7 (1.6-4.0cm)IVSd1.5 (0.7-1.1cm) Aortic Root(2D)2.7 (2.0-3.7cm)LVDd4.9 (3.9-5.9cm) LVOT Diameter2.1 (1.8-2.4cm)PWd1.4 (0.7-1.1cm) LVDs3.7 (2.5-4.0cm)FS (%) 17.0 % Aortic Valve AoV Peak Stiven.117.2cm/Amy Peak GR.5.5mmHg Mitral Valve MV E Cqxhozef183.7cm/sMV DECEL [id number] MV A Ouceybhr383.2cm/sE/A Ratio1.0 Tricuspid Valve TR P. Adgeyuso490di/sTR Peak Gr.30mmHg LEFT VENTRICLE The Left Ventricle is borderline dilated. There is mild to moderate concentric left ventricular hyper trophy. The systolic function is moderate to moderately severely impaired. The Ejection Fraction is e stimated at 30%. There is global hypokinesis of the left ventricle. RIGHT VENTRICLE The right ventricle is normal size. There is normal right ventricular wall thickness. The right ventr icular systolic function is normal. ATRIA The left atrium is mildly dilated. The right atrium is mildly dilated. The interatrial septum is inta ct with no evidence for an atrial septal defect or patent foramen ovale as noted on 2-D or Doppler im aging. AORTIC VALVE The aortic valve is normal in structure and function. Doppler and Color Flow revealed trace aortic re gurgitation. There is no significant aortic valvular stenosis. MITRAL VALVE There is no mitral valve stenosis. Doppler and Color-flow revealed trace to mild mitral regurgitation . TRICUSPID VALVE Doppler and Color Flow revealed trace to mild tricuspid regurgitation. There is no tricuspid valve st enosis. PULMONIC VALVE The pulmonic valve is not well visualized. Doppler and Color Flow revealed trace pulmonic valvular re gurgitation. There is no pulmonic valvular stenosis. GREAT VESSELS The aortic root is normal in size. The IVC is normal in size and collapses >50% with inspiration. PERICARDIAL EFFUSION There is a small pleural effusion. There is no evidence of significant pericardial effusion. Critical Notification Critical Value: No <Conclusion> The Left Ventricle is borderline dilated. The systolic function is moderate to moderately severely impaired. The Ejection Fraction is estimated at 30%. There is global hypokinesis of the left ventricle. There is mild to moderate concentric left ventricular hypertrophy. There is no significant aortic valvular stenosis. Doppler and Color Flow revealed trace aortic regurgitation. Doppler and Color-flow revealed trace to mild mitral regurgitation. Doppler and Color Flow revealed trace to mild tricuspid regurgitation. Signed by : Alphonso Levine MD Electronically Approved : 04/07/2018 14:42:34
== END 2018-04-07 11:00 | disposition home or self-care (01) | DRG 392 ==
LOC: ER 16:40 → 1 SOUTH 04-05 00:30
PROVIDERS: ADMIT Internal Medicine; ATTEND Internal Medicine
DX: K52.9 Noninfective gastroenteritis and colitis, unspecified (principal); E46 Unspecified protein-calorie malnutrition; I13.0 Hypertensive heart and chronic kidney disease with heart failure and stage 1 through stage 4 chronic kidney disease, or unspecified chronic kidney disease; I42.9 Cardiomyopathy, unspecified; D64.9 Anemia, unspecified; E11.22 Type 2 diabetes mellitus with diabetic chronic kidney disease; E78.5 Hyperlipidemia, unspecified; N18.9 Chronic kidney disease, unspecified; I50.9 Heart failure, unspecified; D72.829 Elevated white blood cell count, unspecified; R31.9 Hematuria, unspecified; E87.6 Hypokalemia; N32.89 Other specified disorders of bladder; Z82.49 Family history of ischemic heart disease and other diseases of the circulatory system; Z68.36 Body mass index [BMI] 36.0-36.9, adult; Z79.4 Long term (current) use of insulin; Z79.899 Other long term (current) drug therapy; I25.2 Old myocardial infarction; Z82.61 Family history of arthritis; Z84.1 Family history of disorders of kidney and ureter
CPT/HCPCS: 36415; 74022; 74177; 80048; 80053; 80061; 80076; 81001; 82553; 82947; 83690; 83880; 84484; 85025; 85027; 85610; 85651; 85730; 86140; 93005; 93306; J1815; J1940; J3490; Q9966; Q9967; 99285-25

== ENCOUNTER → 2018-04-17 | Outpatient (CLI) | payer OTHER ==
[2018-04-07 09:02] VITALS: BP 149/87
[~2018-04-17] MED LIST changes: +ATORVASTATIN CA80 MG PO; +CARV25TA2 PO; +FURO-68 PO; +INSU100I13 SQ; +LEVO500T59 PO; +LISI-338 PO; +LISI40TA PO; +METR500T PO; +POTA20TA4 PO
--- NOTE | 2018-04-17 10:26 | RAD ---
THYROID ULTRASOUND: 04/17/2018 9:00 AM Indication: 47 years old Male. Enlarged thyroid. Comparison: None. FINDINGS: Sonographic evaluation of the thyroid gland was performed utilizing grayscale and color Doppler. Right lobe: Normal in morphology and echotexture. Size: 4.9 x 1.7 x 1.9 cm Nodules: There is a circumscribed predominant cystic, hypoechoic nodule in the mid right thyroid lobe measuring 3 x 3 x 2 mm. This nodule is wider than it is tall without significant internal echogenic foci. (Less than 2 points) Left lobe: Normal in morphology and echotexture. Size: 5.5 x 1.8 x 1.6 cm Nodules: 1. There is a 5 x 5 x 4 mm predominant cystic, hypoechoic nodule in the inferior left thyroid lobe with internal punctate echogenic foci with comet tail artifact (less than 2 points). Isthmus: Unremarkable. IMPRESSION: Benign-appearing predominately cystic nodules within the thyroid gland, as detailed above. Otherwise, thyroid gland is homogeneous without significant hyperemia. Electronically signed by: Luz Mcmanus MD (04/17/2018 10:23 AM) [id number]
== END | disposition home or self-care (01) ==
LOC: US 08:46
PROVIDERS: ATTEND Family Medicine
DX: E04.2 Nontoxic multinodular goiter (principal); I13.0 Hypertensive heart and chronic kidney disease with heart failure and stage 1 through stage 4 chronic kidney disease, or unspecified chronic kidney disease; E11.22 Type 2 diabetes mellitus with diabetic chronic kidney disease; I50.9 Heart failure, unspecified; N18.9 Chronic kidney disease, unspecified; E78.5 Hyperlipidemia, unspecified; E87.6 Hypokalemia; D64.9 Anemia, unspecified
CPT/HCPCS: 76536

== ENCOUNTER → 2018-08-14 | Outpatient (CLI) | payer OTHER ==
[2018-08-14 11:30] LABS: BASO % 1 % (0-3); EOS # 0.1 x10^3/uL (0.0-0.7); EOS % 1 % (0-3); HEMATOCRIT 32.2 % (39.0-53.0); HEMOGLOBIN 10.8 g/dL (13.0-17.5); LYMPH # 1.1 x10^3/uL (1.0-4.8); LYMPH % 14 % (24-48); MEAN CORPUSCULAR HEMOGLOBIN 32 pg (25-35); MEAN CORPUSCULAR HGB CONC 33 g/dL (31-37); MEAN CORPUSCULAR VOLUME 96 fL (79-100); MONO # 0.5 x10^3/uL (0.0-1.1); MONO % 6 % (0-9); NEUT # 6.6 x10^3uL (1.8-7.7); NEUT % 78 % (31-73); PLATELET COUNT 355 x10^3/uL (140-400); RED BLOOD COUNT 3.35 x10^6/uL (4.30-5.70); RED CELL DISTRIBUTION WIDTH 13.7 % (11.5-14.5); WHITE BLOOD COUNT 8.5 x10^3/uL (4.0-11.0)
[2018-08-14 11:44] LABS: ALBUMIN 3.4 g/dL (3.4-5.0); ALBUMIN/GLOBULIN RATIO 0.8 (1.0-1.7); C REACTIVE PROTEIN 3.3 mg/L (0-3.3); CALCIUM 8.6 mg/dL (8.5-10.1); CREATININE 1.6 mg/dL (0.7-1.3); GFR 56.3; MAGNESIUM 1.8 mg/dL (1.8-2.4); TOTAL BILIRUBIN 0.6 mg/dL (0.2-1.0); TOTAL PROTEIN 7.5 g/dL (6.4-8.2)
[2018-08-14 12:33] LABS: SEDIMENTATION RATE 44 (0-15)
[2018-08-14 15:56] LABS: FREE T4 1.07 ng/dL (0.76-1.46); THYROID STIM HORMONE (TSH) 3.105 uIU/mL (0.358-3.740)
== END | disposition home or self-care (01) ==
LOC: LAB 10:50
PROVIDERS: ATTEND Family Medicine
DX: R42 Dizziness and giddiness (principal); R60.0 Localized edema
CPT/HCPCS: 36415; 80053; 83735; 83880; 84439; 84443; 85025; 85651; 86140

== ENCOUNTER 2018-09-07 14:48 | Emergency (ER) | payer OTHER ==
[~2018-09-07] VITALS: Ht 175.3 cm; Wt 112.0 kg
[2018-09-07 14:59] VITALS: BP 129/68
--- NOTE | 2018-09-07 15:28 | PHYS DOC ---
Past History Past Medical History: CHF, Diabetes, Hypertension Past Surgical History: Other Alcohol Use: None Drug Use: None Adult General Chief Complaint Chief Complaint: BACK PAIN OR INJURY HPI HPI 47-year-old male presents with low back pain. 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 He is pulling boxes off of the belt and loading them on to trucks. Patient did not have any pain on when he left work, but when he woke up Sunday morning he was extremely stiff and had pain in his low back. It took a while just to get out of bed. He states it is very painful going from sitting to standing. He has pain with walking, but it is better. The pain overall is slightly better today but he is concerned it is not getting better very quickly. He has not taken any medications for this pain. He has no history of back injury or surgery. Review of Systems Review of Systems Constitutional: Denies fever or chills [] Eyes: Denies change in visual acuity, redness, or eye pain [] HENT: Denies nasal congestion or sore throat [] Respiratory: Denies cough or shortness of breath [] Cardiovascular: No additional information not addressed in HPI [] GI: Denies abdominal pain, nausea, vomiting, bloody stools or diarrhea [] : Denies dysuria or hematuria [] Musculoskeletal: Low back pain[] Integument: Denies rash or skin lesions [] Neurologic: Denies headache, focal weakness or sensory changes [] Endocrine: Denies polyuria or polydipsia [] All other systems were reviewed and found to be within normal limits, except as documented in this note. Allergies Allergies Allergies Coded Allergies Type Severity Reaction Last Updated Verified No Known Drug Allergies 04/04/18 No Physical Exam Physical Exam Constitutional: Well developed, well nourished, no acute distress, non-toxic appearance. [] HENT: Normocephalic, atraumatic, bilateral external ears normal, oropharynx moist, no oral exudates, nose normal. [] Eyes: PERRLA, EOMI, conjunctiva normal, no discharge. [] Neck: Normal range of motion, no tenderness, supple, no stridor. [] Cardiovascular:Heart rate regular rhythm, no murmur [] Lungs & Thorax: Bilateral breath sounds clear to auscultation [] Abdomen: Bowel sounds normal, soft, no tenderness, no masses, no pulsatile masses. [] Skin: Warm, dry, no erythema, no rash. [] Back: Tenderness over paraspinal muscles L4-L5. Muscle spasm of the same.[] Extremities: No tenderness, no cyanosis, no clubbing, ROM intact, no edema. [] Neurologic: Alert and oriented X 3, normal motor function, normal sensory function, no focal deficits noted. [] Psychologic: Affect normal, judgement normal, mood normal. [] Current Patient Data Vital Signs Vital Signs Date Time Temp Pulse Resp B/P (MAP) Pulse Ox O2 Delivery O2 Flow Rate FiO2 09/07/18 14:59 Room Air 09/07/18 14:59 98.7 69 20 97 EKG EKG [] Radiology/Procedures Radiology/Procedures [] Impressions: ndication: Low back pain for 2 days TECHNIQUE: 3 views of the lumbar spine COMPARISON: None FINDINGS: There are 5 lumbar type vertebral bodies. No compression deformities. No intervertebral disc space narrowing or productive changes. No facet arthropathy. Visualized SI joints within normal limits. IMPRESSION: No acute findings. No evidence of significant degenerative disc disease. Electronically signed by: Solomon De Luna DO (09/07/2018 5:24 PM) [facility] DICTATED AND SIGNED BY: SOLOMON DE LUNA DO DATE: 09/07/18 1724 CC: CHAI GOMEZ MD; SALIMA WRIGHT DO ~ Course & Med Decision Making Course & Med Decision Making Pertinent Labs and Imaging studies reviewed. (See chart for details) The patient's x-rays show negative for acute findings. He has no significant degeneration. I believe the patient likely has a lumbar strain or possibly a bulging disc due to overuse. Advised that she take anti-inflammatories as well as Flexeril for the next few days. I have also given him a short course of [place] for the acute phase of his pain. If this does not rapidly improve in the next week I have advised the patient to discuss physical therapy with his PCP. [] Dragon Disclaimer Dragon Disclaimer This electronic medical record was generated, in whole or in part, using a voice recognition dictation system. Departure Departure: Referrals: CHAI GOMEZ MD (PCP) Scripts Cyclobenzaprine Hcl (CYCLOBENZAPRINE HCL) 10 Mg Tablet 1 TAB PO TID PRN for MUSCLE SPASMS, #30 TAB Prov: SALIMA WRIGHT DO 09/07/18 Hydrocodone Bit/Acetaminophen (NORCO 5-325 TABLET) 1 Each Tablet 1 TAB PO PRN Q6HRS PRN for PAIN, #10 TAB 0 Refills Prov: SALIMA WRIGHT DO 09/07/18 SALIMA WRIGHT DO Sep 07, 2018 15:28
[2018-09-07] MEDS ORDERED: HYDR-3165 PO (16:18)
[2018-09-07] MEDS ORDERED: CYCL-331 PO (16:18)
--- NOTE | 2018-09-07 17:28 | RAD ---
Indication: Low back pain for 2 days TECHNIQUE: 3 views of the lumbar spine COMPARISON: None FINDINGS: There are 5 lumbar type vertebral bodies. No compression deformities. No intervertebral disc space narrowing or productive changes. No facet arthropathy. Visualized SI joints within normal limits. IMPRESSION: No acute findings. No evidence of significant degenerative disc disease. Electronically signed by: Solomon Pal DO (09/07/2018 5:24 PM) [facility]
== END 2018-09-07 16:20 | disposition home or self-care (01) ==
LOC: ER 14:48
DX: M54.5 Low back pain (principal); M62.830 Muscle spasm of back; E11.9 Type 2 diabetes mellitus without complications; I11.0 Hypertensive heart disease with heart failure; I50.9 Heart failure, unspecified
CPT/HCPCS: 72100; 99283

== ENCOUNTER 2018-10-14 16:09 | Emergency (ER) | payer OTHER ==
[~2018-10-14] VITALS: Ht 175.3 cm; Wt 112.0 kg
[~2018-10-14 16:09] MED LIST changes: +CYCL-331 PO; +HYDR-3165 PO
[2018-10-14 17:08] LABS: BASO % 0 % (0-3); EOS # 0.1 x10^3/uL (0.0-0.7); EOS % 1 % (0-3); HEMATOCRIT 32.6 % (39.0-53.0); HEMOGLOBIN 10.7 g/dL (13.0-17.5); LYMPH % 8 % (24-48); MEAN CORPUSCULAR HEMOGLOBIN 32 pg (25-35); MEAN CORPUSCULAR HGB CONC 33 g/dL (31-37); MEAN CORPUSCULAR VOLUME 97 fL (79-100); MONO # 0.8 x10^3/uL (0.0-1.1); MONO % 6 % (0-9); NEUT # 11.4 x10^3uL (1.8-7.7); NEUT % 86 % (31-73); PLATELET COUNT 301 x10^3/uL (140-400); RED BLOOD COUNT 3.36 x10^6/uL (4.30-5.70); RED CELL DISTRIBUTION WIDTH 13.7 % (11.5-14.5); WHITE BLOOD COUNT 13.3 x10^3/uL (4.0-11.0)
[2018-10-14 17:17] LABS: ALBUMIN/GLOBULIN RATIO 0.7 (1.0-1.7); CALCIUM 8.9 mg/dL (8.5-10.1); CREATININE 2.2 mg/dL (0.7-1.3); POTASSIUM 4.8 mmol/L (3.5-5.1); TOTAL BILIRUBIN 0.7 mg/dL (0.2-1.0); TOTAL PROTEIN 7.2 g/dL (6.4-8.2)
[2018-10-14] MEDS ORDERED: IV NORMAL SALINE 500ML 500 ML IV ONE (17:45)
--- NOTE | 2018-10-14 18:03 | EKG ---
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
--- NOTE | 2018-10-14 19:19 | PHYS DOC ---
Past History Past Medical History: CHF, Diabetes, Hypertension, Other Past Surgical History: No Surgical History Alcohol Use: None Drug Use: None Adult General Chief Complaint Chief Complaint: DIZZY/LIGHT HEADED HPI HPI Patient is a 47 year old M who presents with dizziness over the past 24-48 hours. Currently denies any other associated symptoms. He denies shortness of breath, cough, nasal congestion, difficulty urinating, abdominal pain, unusual bowel pattern or rash. He states that he has been taking his medications for his diabetes. He had lunch this afternoon and took insulin prior to lunch. His sugars have been running around 100 Or take only 5 with a max of 150 over the past week. Review of Systems Review of Systems Constitutional: Denies fever or chills [] Eyes: Denies change in visual acuity, redness, or eye pain [] HENT: Denies nasal congestion or sore throat [] Respiratory: Denies cough or shortness of breath [] Cardiovascular: No additional information not addressed in HPI [] GI: Denies abdominal pain, nausea, vomiting, bloody stools or diarrhea [] : Denies dysuria or hematuria [] Musculoskeletal: Denies back pain or joint pain [] Integument: Denies rash or skin lesions [] Neurologic: Denies headache, focal weakness or sensory changes [] Endocrine: Denies polyuria or polydipsia [] All other systems were reviewed and found to be within normal limits, except as documented in this note. Family History Family History No pertinent family medical history was reported Current Medications Current Medications Current Medications Medications (Trade) Dose Ordered Sig/Olivia Start Time Stop Time Status Last Admin Dose Admin Sodium Chloride 500 ml @ 0 mls/hr 1X ONCE 10/14/18 17:45 10/14/18 17:46 DC 10/14/18 17:56 500 MLS/HR Allergies Allergies Allergies Coded Allergies Type Severity Reaction Last Updated Verified No Known Drug Allergies 04/04/18 No Physical Exam Physical Exam Constitutional: Well developed, well nourished, no acute distress, non-toxic appearance. [] HENT: Normocephalic, atraumatic, bilateral external ears normal, oropharynx moist, no oral exudates, nose normal. [] Eyes: PERRLA, EOMI, conjunctiva normal, no discharge. [] Neck: Normal range of motion, no tenderness, supple, no stridor. [] Cardiovascular:Heart rate regular rhythm Lungs & Thorax: Bilateral breath sounds clear to auscultation [] Abdomen: Bowel sounds normal, soft, no tenderness, no masses, no pulsatile masses. [] Skin: Warm, dry, no erythema, no rash. [] Extremities: No tenderness, no cyanosis, no clubbing, ROM intact, no edema. [] Neurologic: Alert and oriented X 3, normal motor function, normal sensory function, no focal deficits noted. [] Psychologic: Affect normal, judgement normal, mood normal. [] Current Patient Data Vital Signs Vital Signs Date Time Temp Pulse Resp B/P (MAP) Pulse Ox O2 Delivery O2 Flow Rate FiO2 10/14/18 16:15 97.7 69 20 98 Room Air Lab Results Laboratory Tests Test 10/14/18 16:23 10/14/18 16:50 Glucose (Fingerstick) 300 mg/dL (70-99) H White Blood Count 13.3 x10^3/uL (4.0-11.0) H Red Blood Count 3.36 x10^6/uL (4.30-5.70) L Hemoglobin 10.7 g/dL (13.0-17.5) L Hematocrit 32.6 % (39.0-53.0) L Mean Corpuscular Volume 97 fL (79-100) Mean Corpuscular Hemoglobin 32 pg (25-35) Mean Corpuscular Hemoglobin Concent 33 g/dL (31-37) Red Cell Distribution Width 13.7 % (11.5-14.5) Platelet Count 301 x10^3/uL (140-400) Neutrophils (%) (Auto) 86 % (31-73) H Lymphocytes (%) (Auto) 8 % (24-48) L Monocytes (%) (Auto) 6 % (0-9) Eosinophils (%) (Auto) 1 % (0-3) Basophils (%) (Auto) 0 % (0-3) Neutrophils # (Auto) 11.4 x10^3uL (1.8-7.7) H Lymphocytes # (Auto) 1.0 x10^3/uL (1.0-4.8) Monocytes # (Auto) 0.8 x10^3/uL (0.0-1.1) Eosinophils # (Auto) 0.1 x10^3/uL (0.0-0.7) Basophils # (Auto) 0.0 x10^3/uL (0.0-0.2) Sodium Level 139 mmol/L (136-145) Potassium Level 4.8 mmol/L (3.5-5.1) Chloride Level 106 mmol/L (98-107) Carbon Dioxide Level 25 mmol/L (21-32) Anion Gap 8 (6-14) Blood Urea Nitrogen 28 mg/dL (8-26) H Creatinine 2.2 mg/dL (0.7-1.3) H Estimated GFR (Cockcroft-Gault) 39.0 BUN/Creatinine Ratio 13 (6-20) Glucose Level 330 mg/dL (70-99) H Calcium Level 8.9 mg/dL (8.5-10.1) Magnesium Level 2.0 mg/dL (1.8-2.4) Total Bilirubin 0.7 mg/dL (0.2-1.0) Aspartate Amino Transferase (AST) 33 U/L (15-37) Alanine Aminotransferase (ALT) 41 U/L (16-63) Alkaline Phosphatase 122 U/L (46-116) H Total Protein 7.2 g/dL (6.4-8.2) Albumin 3.0 g/dL (3.4-5.0) L Albumin/Globulin Ratio 0.7 (1.0-1.7) L EKG EKG Normal sinus rhythm, left axis deviation, consideration for left ventricular hypertrophy Radiology/Procedures Radiology/Procedures Chest xray: No acute disease Course & Med Decision Making Course & Med Decision Making Pertinent Labs and Imaging studies reviewed. (See chart for details) [] Dragon Disclaimer Dragon Disclaimer This electronic medical record was generated, in whole or in part, using a voice recognition dictation system. Departure Departure: Impression: Primary Impression: Hyperglycemia Disposition: 01 HOME, SELF-CARE Condition: STABLE Referrals: CHAI GOMEZ MD (PCP) Patient Instructions: Hyperglycemia Additional Instructions: Dakotah was seen in the emergency department for lightheadedness. No emergency medical condition was found on history of physical exam. He did have labs revealed an elevated white blood cell count and high blood sugar. No obvious signs of infection were found. His symptoms did improve with IV hydration. He was encouraged to return to the emergency room as soon as possible if he develops new or worsening symptoms. He was also advised follow up with his primary care doctor in the next 24-48 hrs for further management. NICOLETTE MEANS MD Oct 14, 2018 19:19
[2018-10-14 19:41] LABS: BILIRUBIN,URINE NEG (NEG); CLARITY,URINE HAZY; COLOR,URINE YELLOW; GLUCOSE,URINE 250 mg/dL (NEG); NITRITE,URINE NEG (NEG); UROBILINOGEN,URINE 0.2 mg/dL (0.2 mg/dL)
[2018-10-14 19:42] LABS: BACTERIA,URINE FEW /HPF (0-FEW); HYALINE CASTS, URINE MANY /HPF; SQUAMOUS EPITHELIAL CELL,UR FEW /LPF
[2018-10-14 20:00] VITALS: BP 126/66
--- NOTE | 2018-10-14 23:18 | RAD ---
Examination: CHEST PA LATERAL History: Dizziness, cough, congestion Comparison/Correlation: None Findings: PA and lateral views of chest were obtained. Heart size is borderline. Pulmonary vasculature is normal. No infiltrate or effusion. Bony structures are unremarkable. No pneumothorax. No pneumothorax. Impression: No infiltrate. Electronically signed by: Perico Cuello MD (10/14/2018 11:13 PM) [facility]
== END 2018-10-14 20:05 | disposition home or self-care (01) ==
LOC: ER 16:09
DX: E11.65 Type 2 diabetes mellitus with hyperglycemia (principal); I11.0 Hypertensive heart disease with heart failure; I50.9 Heart failure, unspecified
CPT/HCPCS: 36415; 71046; 80053; 81001; 82947; 83735; 85025; 93005; 96360; 99284; J7040

== ENCOUNTER 2018-12-02 19:54 | Emergency (ER) | payer OTHER ==
[~2018-12-02] VITALS: Ht 175.3 cm; Wt 118.4 kg
--- NOTE | 2018-12-02 20:31 | ED.ADGEN ---
Past History Past Medical History: CHF, Diabetes, Hypertension, Other Past Surgical History: No Surgical History Alcohol Use: None Drug Use: None Adult General Chief Complaint Chief Complaint ".. My legs all swelled up again.."...." I ve had this work up many times.. I ve had US...CT.. MRI... I was on 80 of Lasix ... but I got dehydrated after a week... and the reduced me to 40... I have CHF.. and DM... I am just frustrated nothing can be done..." HPI HPI Patient is a 48 year old male who presents with with complaints of increased acute on his chronic leg edema. Patient states he only recent changes in meds is that he reduced his Lasix to 40 mg a day. Patient states she's had multiple workups for his leg edema. Patient states had multiple workups for his CHF. Patient states his sugars have been normal to slightly high. After discussions with patient he has a elected not to have any labs drawn, he refuses any ultrasound or radiographic evaluation at this time. Patient does follow with Dr. Johnson. And does follow with cardiology.. Suggests the patient that he could increase his Lasix again to 80 mg a day for the next 3 days. But must increase his potassium intake such as a glass of orange juice every day or a banana. Patient to record daily weights.. Patient to show these records to his primary. Suggest patient to discuss maybe use of pneumatic cuffs when he sleeps at night. Again offered patient labs with this visit or an ultrasound however he refused. Encouraged patient to have his BiPAP rechecked for effective ventilations at night and mass fitting. Patient declines any prescription stated he had enough Lasix at home that he would just increase his dosage to 80 and follow-up with Dr. Johnson. Again warned patient risks of hypo-kalemia, dehydration, or missed diagnosis such as DVT. Review of Systems Review of Systems Constitutional: Denies fever or chills [] Eyes: Denies change in visual acuity, redness, or eye pain [] HENT: Denies nasal congestion or sore throat [] Respiratory: Denies cough or shortness of breath [] Cardiovascular: No additional information not addressed in HPI [] GI: Denies abdominal pain, nausea, vomiting, bloody stools or diarrhea [] : Denies dysuria or hematuria [] Musculoskeletal: Denies back pain or joint pain [] Integument: Denies rash or skin lesions [] Neurologic: Denies headache, focal weakness or sensory changes [] Endocrine: Denies polyuria or polydipsia [] All other systems were reviewed and found to be within normal limits, except as documented in this note. Family History Family History Diabetes, hypertension Current Medications Current Medications See nursing for home meds Allergies Allergies Allergies Coded Allergies Type Severity Reaction Last Updated Verified No Known Drug Allergies 04/04/18 No Physical Exam Physical Exam Constitutional: , no acute distress, non-toxic appearance. [] HENT: Normocephalic, atraumatic, bilateral external ears normal, oropharynx moist, no oral exudates, nose normal. [] Eyes: PERRLA, EOMI, conjunctiva normal, no discharge. [] Neck: Normal range of motion, no tenderness, supple, no stridor. Neck size more than 17 inches circumference Cardiovascular:Heart rate regular rhythm, no murmur [] Lungs & Thorax: Bilateral breath sounds equal at apex auscultation [] Abdomen: Bowel sounds normal, soft, no tenderness, no masses, no pulsatile masses. Obese Skin: Warm, dry, does have venous stasis findings in legs. Back: No tenderness, no CVA tenderness. [] Extremities: No marked tenderness, no cyanosis, no clubbing, ROM intact, has soft edema and woody edema to lower legs. No localized cording or tracking Neurologic: Alert and oriented X 3, patient is ambulatory. Does have sensation in feet, no focal deficits noted. [] Psychologic: Affect patient states he is frustrated, mood does have a depressed affect but denies any suicidal ideations Current Patient Data Vital Signs Vital Signs Date Time Temp Pulse Resp B/P (MAP) Pulse Ox O2 Delivery O2 Flow Rate FiO2 12/02/18 20:45 96 20 191/90 (123) 97 Room Air 12/02/18 20:05 98.2 98.0 EKG EKG [] Radiology/Procedures Radiology/Procedures [] Course & Med Decision Making Course & Med Decision Making Pertinent Labs and Imaging studies reviewed. (See chart for details) Discussed patient a plan of increase in his Lasix as per history of present illness. Patient continue to refuse labs or radiographic evaluation. Did recommend pneumatic cuffs at night.. May need a combination of both proximal and distal loop diuretic. Recommend patient get a follow-up on his BiPAP or CPAP since he had complaints that seem to have poor mask fitting. Patient encouraged to return anytime if he elected to have labs and radiographic evaluation. [] Final Impression Final Impression 1. Acute on Chronic Edema[] Dragon Disclaimer Dragon Disclaimer This electronic medical record was generated, in whole or in part, using a voice recognition dictation system. Discharge Summary Visit Information Final Diagnosis Problems Medical Problems: (1) Edema Status: Acute Brief Hospital Course Allergies Allergies Coded Allergies Type Severity Reaction Last Updated Verified No Known Drug Allergies 04/04/18 No Vital Signs Vital Signs Date Time Temp Pulse Resp B/P (MAP) Pulse Ox O2 Delivery O2 Flow Rate FiO2 12/02/18 20:45 96 20 191/90 (123) 97 Room Air 12/02/18 20:05 98.2 98.0 Brief Hospital Course Mr. Garcia is a 48 old male who presented with complaints of increase of edema / hx chronic edema. Refused labs or radiographic eval. Plan to increase lasix to 80 mg day and increase OJ or banana a day. Must follow-up primary care. Return at any time we elected labs and radiographic evaluation. Discharge Information Condition at Discharge: Stable Disposition/Orders: D/C to Home Dischare Medications Active Scripts Active Cyclobenzaprine Hcl 10 Mg Tablet 1 Tab PO TID PRN Echo 5-325 Tablet (Hydrocodone Bit/Acetaminophen) 1 Each Tablet 1 Tab PO PRN Q6HRS PRN Flagyl (Metronidazole) 500 Mg Tablet 1 Tab PO BID Lisinopril 5 Mg Tablet 5 Mg PO DAILY 7 Days Klor-Con M20 (Potassium Chloride) 20 Meq Tab.er.prt 20 Meq PO DAILYWBKFT 7 Days Levaquin (Levofloxacin) 500 Mg Tablet 500 Mg PO DAILY Lasix (Furosemide) 40 Mg Tablet 40 Mg PO QD 7 Days LAST DOSE GIVEN: DATE: TIME: NEXT DOSE DUE: DATE: TIME: Reported Lantus Solostar (Insulin Glargine,Hum.rec.anlog) 100 Unit/1 Ml Insuln.pen 30 Unit SQ BID Atorvastatin Calcium 80 Mg Tablet 80 Mg PO QHS LAST DOSE GIVEN: DATE: TIME: NEXT DOSE DUE: DATE: TIME: Carvedilol 25 Mg Tablet 25 Mg PO BIDWMEALS LAST DOSE GIVEN: DATE: TIME: NEXT DOSE DUE: DATE: TIME: Dragon Disclaimer This chart was dictated in whole or in part using Voice Recognition software in a busy, high-work load, and often noisy Emergency Department environment. It may contain unintended and wholly unrecognized errors or omissions. CHRISTIANE KENDALL MD Dec 02, 2018 20:31
[2018-12-02 20:45] VITALS: BP 191/90
== END 2018-12-02 20:45 | disposition home or self-care (01) ==
LOC: ER 19:54
DX: R60.0 Localized edema (principal); I11.9 Hypertensive heart disease without heart failure; I50.9 Heart failure, unspecified; E11.9 Type 2 diabetes mellitus without complications
CPT/HCPCS: 99281

== ENCOUNTER 2019-01-14 11:56 | Emergency (ER) | payer OTHER ==
[~2019-01-14] VITALS: Ht 175.3 cm; Wt 101.3 kg
--- NOTE | 2019-01-14 12:27 | PHYS DOC ---
Past History Past Medical History: CHF, Diabetes, Hypertension, Other Past Surgical History: Tonsillectomy Alcohol Use: None Drug Use: None Adult General Chief Complaint Chief Complaint: HEADACHE HPI HPI 48-year-old male presents with headache for the last 3 days. The patient has had mild sore throat, postnasal drip, nasal congestion and a nonproductive cough for 4 or 5 days. He does have known allergies. He has tried Benadryl and Tylenol at home without relief. He describes the headache as a pressure sensation across his temples and behind his eyes. Patient denies any trauma or falls. He is unsure piece had a fever. He denies chills. Patient also wears CPAP at night, but admits to not cleaning it every day. He has no cough or shortness of breath. Review of Systems Review of Systems Constitutional: Denies fever or chills [] Eyes: Denies change in visual acuity, redness, or eye pain [] HENT: His of congestion with mild sore throat [] Respiratory: Denies cough or shortness of breath [] Cardiovascular: No additional information not addressed in HPI [] GI: Denies abdominal pain, nausea, vomiting, bloody stools or diarrhea [] : Denies dysuria or hematuria [] Musculoskeletal: Denies back pain or joint pain [] Integument: Denies rash or skin lesions [] Neurologic: Headache. Denies focal weakness or sensory changes [] Endocrine: Denies polyuria or polydipsia [] All other systems were reviewed and found to be within normal limits, except as documented in this note. Allergies Allergies Allergies Coded Allergies Type Severity Reaction Last Updated Verified No Known Drug Allergies 01/14/19 No Physical Exam Physical Exam Constitutional: Well developed, well nourished, no acute distress, non-toxic appearance. [] HENT: Normocephalic, atraumatic, bilateral external ears normal, oropharynx moist, no oral exudates, nose congested. Bilateral tympanic membranes blocked by cerumen[] Eyes: PERRLA, EOMI, conjunctiva normal, no discharge. [] Neck: Normal range of motion, no tenderness, supple, no stridor. [] Cardiovascular:Heart rate regular rhythm, no murmur [] Lungs & Thorax: Bilateral breath sounds clear to auscultation [] Abdomen: Bowel sounds normal, soft, no tenderness, no masses, no pulsatile masses. [] Skin: Warm, dry, no erythema, no rash. [] Back: No tenderness, no CVA tenderness. [] Extremities: No tenderness, no cyanosis, no clubbing, ROM intact, no edema. [] Neurologic: Alert and oriented X 3, normal motor function, normal sensory function, no focal deficits noted. [] Psychologic: Affect normal, judgement normal, mood normal. [] Current Patient Data Vital Signs Vital Signs Date Time Temp Pulse Resp B/P (MAP) Pulse Ox O2 Delivery O2 Flow Rate FiO2 01/14/19 12:02 97.8 73 18 100 Room Air EKG EKG [] Radiology/Procedures Radiology/Procedures [] Course & Med Decision Making Course & Med Decision Making Pertinent Labs and Imaging studies reviewed. (See chart for details) For his headache, given the patient 1 L normal saline, 30 mg of Toradol, 25 mg of Benadryl, 10 mg of Reglan. After period of rest, he is feeling better at this time. The patient's labs are significant for an elevated blood sugar with a normal anion gap. He also has an elevated creatinine and BUN. This creatinine is 1 g/dL higher than his baseline in July 2018. His BUN is 60 and suggestive of dehydration. We gave the patient 1 L normal saline in the ER and he rarely had to urinate. I reviewed the patient's medications and he is on 80 of atorvastatin, entresto, spironolactone and lasix. I advised the patient to stop these 3 medications until he sees his primary care physician as these likely need to be adjusted due to his kidney function. He does not appear to be on a diabetes medicine. We'll continue his carvedilol. Advised that he discuss his medications with his physician tomorrow. I have stressed to him the importance of telling his physician about his lab results today. He is stable for discharge at this time. [] Dragon Disclaimer Dragon Disclaimer This electronic medical record was generated, in whole or in part, using a voice recognition dictation system. Departure Departure: Impression: Primary Impression: Headache Additional Impressions: Hyperglycemia Elevated serum creatinine Disposition: HOME, SELF-CARE Condition: STABLE Referrals: CHAI GOMEZ MD (PCP) Patient Instructions: Creatinine, Blood (Serum Creatinine), General Headache Without Cause, Xarx-qa-Docr, Hyperglycemia, Eyav-wc-[id number] Problem Qualifiers Primary Impression: Headache Headache type: other vascular headache Qualified Codes: G44.1 - Vascular headache, not elsewhere classified SALIMA WRIGHT DO Jan 14, 2019 12:27
[2019-01-14] MEDS ORDERED: IV NORMAL SALINE 1,000ML 1,000 ML IV ONE (12:30)
[2019-01-14] MEDS ORDERED: METOCLOPRAMIDE HCL 10 MG/2 ML VIAL. IV ONE (12:45)
[2019-01-14] MEDS ORDERED: KETOROLAC 30 MG/ML VIAL. IV ONE (12:45)
[2019-01-14] MEDS ORDERED: diphenhydrAMINE 50 MG/ML VIAL IVP ONE (12:45)
[2019-01-14 12:49] LABS: BASO # 0.1 x10^3/uL (0.0-0.2); BASO % 1 % (0-3); EOS # 0.2 x10^3/uL (0.0-0.7); EOS % 1 % (0-3); HEMATOCRIT 36.7 % (39.0-53.0); HEMOGLOBIN 12.4 g/dL (13.0-17.5); LYMPH # 1.3 x10^3/uL (1.0-4.8); LYMPH % 10 % (24-48); MEAN CORPUSCULAR HEMOGLOBIN 31 pg (25-35); MEAN CORPUSCULAR HGB CONC 34 g/dL (31-37); MEAN CORPUSCULAR VOLUME 92 fL (79-100); MONO # 0.9 x10^3/uL (0.0-1.1); MONO % 7 % (0-9); NEUT # 10.3 x10^3uL (1.8-7.7); NEUT % 81 % (31-73); PLATELET COUNT 252 x10^3/uL (140-400); RED BLOOD COUNT 3.98 x10^6/uL (4.30-5.70); RED CELL DISTRIBUTION WIDTH 13.1 % (11.5-14.5); WHITE BLOOD COUNT 12.8 x10^3/uL (4.0-11.0)
[2019-01-14 12:59] LABS: ALBUMIN 3.6 g/dL (3.4-5.0); ALBUMIN/GLOBULIN RATIO 0.6 (1.0-1.7); CALCIUM 9.7 mg/dL (8.5-10.1); CREATININE 2.7 mg/dL (0.7-1.3); GFR 30.7; POTASSIUM 5.1 mmol/L (3.5-5.1); TOTAL BILIRUBIN 0.8 mg/dL (0.2-1.0); TOTAL PROTEIN 9.5 g/dL (6.4-8.2)
[2019-01-14 13:50] VITALS: BP 151/87
== END 2019-01-14 13:50 | disposition home or self-care (01) ==
LOC: ER 11:56
DX: G44.1 Vascular headache, not elsewhere classified (principal); E11.65 Type 2 diabetes mellitus with hyperglycemia; R79.89 Other specified abnormal findings of blood chemistry; I11.0 Hypertensive heart disease with heart failure; I50.9 Heart failure, unspecified
CPT/HCPCS: 36415; 80053; 85025; 96361; 96374; 96375; 99284; J1200; J1885; J2765; J7030

== ENCOUNTER 2019-04-07 14:44 | Observation (INO) | payer OTHER ==
[~2019-04-07] VITALS: Ht 175.3 cm; Wt 117.1 kg
--- NOTE | 2019-04-07 15:24 | RAD ---
PROCEDURE: PORTABLE CHEST 1V CLINICAL INDICATION: Dyspnea. COMPARISON: 10/14/2018. FINDINGS: No pneumothorax identified. Cardiac and mediastinal contours unremarkable. No pulmonary consolidation or acute airspace disease. No acute osseous abnormalities identified. IMPRESSION: No pulmonary consolidation or acute airspace disease. Electronically signed by: Solomon Pal DO (04/07/2019 3:22 PM) [facility]
--- NOTE | 2019-04-07 15:30 | PHYS DOC ---
Past History Past Medical History: CHF, Diabetes, Hypertension, Other Past Surgical History: Tonsillectomy Alcohol Use: None Drug Use: None Adult General Chief Complaint Chief Complaint: DIZZY/LIGHT HEADED HPI HPI The patient is a 48-year-old male who presents via EMS for evaluation of dizziness. He states that he was at work and when he arrived to work felt fine. He states that later on he became dizzy and felt like he was off balance. EMS was called and brought the patient here. He is answering questions appropriately but prefers to keep his eyes closed. He denies any recent alcohol or substance abuse. He has a history of diabetes, congestive heart failure, hyperlipidemia, and cardiomyopathy with an EF of 30%. His Accu-Chek was 150. He denies chest pain or shortness of breath, abdominal or back pain, headache, neck pain, fevers or chills, nausea or vomiting, dizziness or syncope. He is alert and oriented �4, calm, appears very fatigued, but is in no distress at this time. Review of Systems Review of Systems Constitutional: Denies fever or chills [] +fatigue Eyes: Denies change in visual acuity, redness, or eye pain [] HENT: Denies nasal congestion or sore throat [] Respiratory: Denies cough or shortness of breath [] Cardiovascular: No additional information not addressed in HPI [] GI: Denies abdominal pain, nausea, vomiting, bloody stools or diarrhea [] : Denies dysuria or hematuria [] Musculoskeletal: Denies back pain or joint pain [] Integument: Denies rash or skin lesions [] Neurologic: Denies headache, focal weakness or sensory changes [] +vertigo/dizzyness Endocrine: Denies polyuria or polydipsia [] All other systems were reviewed and found to be within normal limits, except as documented in this note. Current Medications Current Medications Current Medications Medications (Trade) Dose Ordered Sig/Olivia Start Time Stop Time Status Last Admin Dose Admin Furosemide (Lasix) 40 mg 1X ONCE 04/07/19 15:40 04/07/19 15:41 Meclizine HCl (Antivert) 25 mg 1X ONCE 04/07/19 15:40 04/07/19 15:41 Allergies Allergies Allergies Coded Allergies Type Severity Reaction Last Updated Verified No Known Drug Allergies 01/14/19 No Physical Exam Physical Exam Constitutional: Well developed, well nourished, no acute distress, non-toxic appearance. [] appears fatigued HENT: Normocephalic, atraumatic, bilateral external ears normal, oropharynx moist, no oral exudates, nose normal. [] Eyes: PERRLA, EOMI, conjunctiva normal, no discharge. [] Neck: Normal range of motion, no tenderness, supple, no stridor. [] Cardiovascular:Heart rate regular rhythm, no murmur [] 1+ lower extremity edema b/l Lungs & Thorax: Bilateral breath sounds clear to auscultation [] Abdomen: Bowel sounds normal, soft, no tenderness, no masses, no pulsatile masses. [] Skin: Warm, dry, no erythema, no rash. [] Back: No tenderness, no CVA tenderness. [] Extremities: No tenderness, no cyanosis, no clubbing, ROM intact, no edema. [] Neurologic: Alert and oriented X 3, normal motor function, normal sensory function, no focal deficits noted. [] Psychologic: Affect normal, judgement normal, mood normal. [] EKG EKG Normal sinus rhythm, left axis deviation, rate of 77, no acute ischemic findings, no STEMI, reviewed and interpreted by myself Radiology/Procedures Radiology/[place] [address] IMAGING REPORT Signed PATIENT: GARRET WATTS ACCOUNT: [id number] : 1970 LOCATION: ER AGE: 48 SEX: M EXAM STATUS: PRE ER ORD. PHYSICIAN: ESSIE WOOD DO REASON: edema, dyspnea PROCEDURE: PORTABLE CHEST 1V PROCEDURE: PORTABLE CHEST 1V CLINICAL INDICATION: Dyspnea. COMPARISON: 10/14/2018. FINDINGS: No pneumothorax identified. Cardiac and mediastinal contours unremarkable. No pulmonary consolidation or acute airspace disease. No acute osseous abnormalities identified. IMPRESSION: No pulmonary consolidation or acute airspace disease. Electronically signed by: Solomon Pal DO (04/07/2019 3:22 PM) [facility] DICTATED AND SIGNED BY: SOLOMON PAL DO DATE: 04/07/19 1522 CC: ESSIE WOOD DO; CHAI GOMEZ MD ~ Course & Med Decision Making Course & Med Decision Making @2860 - the patient is much more alert at this time. He is noted to be anemic and reports a history of chronic anemia. He denies ever requiring a blood transfusion. He also denies dark/bloody BM's. @6425 - Dr. Stearns accepts a cardiology consultation Dr. Small accepts the admission. Dragon Disclaimer Dragon Disclaimer This electronic medical record was generated, in whole or in part, using a voice recognition dictation system. Departure Departure: Impression: Primary Impression: Cardiac enzymes elevated Additional Impressions: Dizziness H/O cardiomyopathy Anemia Disposition: ADMITTED INPATIENT Admitting Physician: Austyn Small Condition: STABLE Referrals: CHAI GOMEZ MD (PCP) Problem Qualifiers ESSIE WOOD DO Apr 07, 2019 15:30
[2019-04-07] MEDS ORDERED: FUROSEMIDE 40 MG/4 ML VIAL IVP ONE (15:40)
[2019-04-07] MEDS ORDERED: MECLIZINE 12.5 MG TABLET. PO ONE (15:40)
[2019-04-07 15:54] LABS: BASO # 0.1 x10^3/uL (0.0-0.2); BASO % 1 % (0-3); EOS # 0.2 x10^3/uL (0.0-0.7); EOS % 2 % (0-3); HEMATOCRIT 26.1 % (39.0-53.0); HEMOGLOBIN 8.5 g/dL (13.0-17.5); LYMPH # 1.5 x10^3/uL (1.0-4.8); LYMPH % 13 % (24-48); MEAN CORPUSCULAR HEMOGLOBIN 33 pg (25-35); MEAN CORPUSCULAR HGB CONC 32 g/dL (31-37); MEAN CORPUSCULAR VOLUME 103 fL (79-100); MONO # 1.1 x10^3/uL (0.0-1.1); MONO % 9 % (0-9); NEUT # 8.7 x10^3uL (1.8-7.7); NEUT % 76 % (31-73); PLATELET COUNT 272 x10^3/uL (140-400); RED BLOOD COUNT 2.54 x10^6/uL (4.30-5.70); RED CELL DISTRIBUTION WIDTH 12.9 % (11.5-14.5); WHITE BLOOD COUNT 11.5 x10^3/uL (4.0-11.0)
[2019-04-07 16:29] LABS: ALBUMIN 3.7 g/dL (3.4-5.0); ALBUMIN/GLOBULIN RATIO 0.9 (1.0-1.7); CALCIUM 9.1 mg/dL (8.5-10.1); CREATININE 1.8 mg/dL (0.7-1.3); MAGNESIUM 1.6 mg/dL (1.8-2.4); POTASSIUM 3.8 mmol/L (3.5-5.1); TOTAL BILIRUBIN 1.4 mg/dL (0.2-1.0); TOTAL PROTEIN 7.7 g/dL (6.4-8.2)
[2019-04-07 16:56] LABS: BARBITURATES NEG (NEG); BENZODIAZEPINES NEG (NEG); CANNABINOIDS NEG (NEG); COCAINE NEG (NEG); METHADONE NEG (NEG); OPIATES NEG (NEG); PHENCYCLIDINE NEG (NEG)
[2019-04-07 16:59] LABS: AMPHETAMINE/METHAMPHETAMINE NEG (NEG)
[2019-04-07] MEDS ORDERED: hydrALAZINE 20 MG/ML VIAL. IV ONE (17:45)
[2019-04-07] MEDS ORDERED: HYDR-2868 PO (19:31)
[2019-04-07] MEDS ORDERED: SPIR25TA5 PO (19:31)
[2019-04-07] MEDS ORDERED: IV NORMAL SALINE 1,000ML 1,000 ML IV SCH (19:45)
[2019-04-07 19:47] VITALS: BP 169/82
[2019-04-07] MEDS ORDERED: ACETAMINOPHEN 325 MG TABLET PO PRN (20:00)
[2019-04-07] MEDS ORDERED: INSU100I13 SQ (20:13)
--- NOTE | 2019-04-07 20:51 | HP ---
ADMIT DATE: 04/07/2019 CHIEF COMPLAINT: Dizziness and lightheadedness. HISTORY OF PRESENT ILLNESS: The patient is a pleasant 48-year-old gentleman admitted through the ED with new onset today of dizziness. He arrived at work, he felt fine. No fevers, chills, cough or congestion. He answered questions appropriately, but kept his eyes closed. He denies any recent alcohol or substance abuse. He has a history of diabetes, congestive heart failure, ejection fraction estimated at 30%. He is on 2 diuretics including Lasix and Aldactone. His blood sugar was 150. He denied any chest pain or palpitations. Chest x-ray is unremarkable for any infiltrates or decompensation. Blood pressure was a bit high. He is alert and oriented. He appears tired. He is also anemic with a hemoglobin 8.4 g/dL. He denies any anticoagulation and he denies any [id number]-vkl-[id number] use of nonsteroidal anti-inflammatory drugs. He has not been evaluated with endoscopy. He denied any black tarry stools or hematemesis. PAST MEDICAL HISTORY: Again, significant for labile hypertension, hypertensive cardiomyopathy, diminished ejection fraction, obesity, and congestive heart failure. PAST SURGICAL HISTORY: Tonsillectomy. ALLERGIES: He has no recorded drug allergies: SOCIAL HISTORY: He states no alcohol, drugs or substance abuse. CURRENT MEDICATIONS: Include Coreg 25 mg b.i.d., Aldactone 25 mg daily, Lasix 40 mg daily, Entresto twice a day, Lipitor 80 mg daily, and hydralazine 25 mg 3 times a day. FAMILY HISTORY: His mom is alive at age 73. He moved here recently from [place] to take care of his mother. Father whereabouts is unknown to the patient. REVIEW OF SYSTEMS: Significant for his congestive heart failure. He is unclear about the etiology. He denied any recent travel. He denied any chest pain, palpitations or syncopal episodes. He denied any nausea, vomiting, diarrhea. No recent travel. Appetite has been fair. He is sleeping well. All other systems were reviewed and determined to be negative. He also denies any bloody stools or black tarry stools. PHYSICAL EXAMINATION: GENERAL: When I saw him, this is a pleasant gentleman. INITIAL VITAL SIGNS: In the ED showed a blood pressure of 123/82, his pulse 85 and regular. He was afebrile. HEENT: Head is without trauma. Pupils are reactive. Sclerae nonicteric. The oropharynx is clear. Mucous membranes a bit dry. NECK: Supple. No bruits identified. Venous pressure did not appear distended at 45 degrees. LUNGS: Otherwise clear. I did not appreciate any rales or rhonchi. CARDIOVASCULAR: Showed distant heart tones. No obvious gallops. Peripheral pulses are palpable and full. ABDOMEN: Obese, protuberant. No organomegaly. Bowel sounds are normoactive. EXTREMITIES: Show trace edema. NEUROLOGIC: Focally intact. No deficits. Speech is fluent. He did not have any vertiginous signs. SKIN: No lymphangitis or lymphadenopathy. PERTINENT LABORATORY STUDIES: His creatinine is slightly elevated at 1.9 mg/dL. I do not have a baseline. His potassium is 3.8 mEq. Nonfasting blood sugar 134. The troponin is 0.04. BNP is 2675. His hemoglobin is 8.5 g/dL with white count of 11,500. MCV is 103. IMPRESSION: A 48-year-old gentleman with; 1. Dizziness related to medication. 2. Dehydration secondary to diuretics. 3. Cardiomyopathy. I suspect this may be alcohol induced. He downplays his use of alcohol currently, and in the past. I did not go into detail, but they would fit his chemistries as well as his CBC. 4. Labile hypertension with questionable compliance. 5. Type 2 diabetes mellitus, insulin-dependent. PLAN: 1. Admit to the inpatient unit. 2. Serial cardiac enzymes. 3. I have held his diuretics. 4. Serial chemistries. 5. Gentle IV hydration. 6. We will follow up his CBC. I would recommend a GI workup as an outpatient if he is agreeable. 7. We will continue his Coreg as prescribed. FIORDALIZA MONTES MD DR: TRACI/deann JOB#: [id number] / [id number]
[2019-04-07 20:55] VITALS: BP 160/79
[2019-04-07] MEDS ORDERED: hydrALAZINE 25 MG TABLET PO SCH (21:00)
[2019-04-07] MEDS ORDERED: INSULIN GLARGINE 300 UNITS/3 ML INSULN.PEN. SQ SCH (21:00)
[2019-04-07] MEDS ORDERED: CARVEDILOL 12.5 MG TABLET PO SCH (21:00)
[2019-04-07 22:40] VITALS: BP 121/77
[2019-04-08 05:31] VITALS: BP 135/81
[2019-04-08 05:52] LABS: HEMATOCRIT 25.2 % (39.0-53.0); HEMOGLOBIN 8.6 g/dL (13.0-17.5); RED BLOOD COUNT 2.48 x10^6/uL (4.30-5.70); RED CELL DISTRIBUTION WIDTH 12.9 % (11.5-14.5); WHITE BLOOD COUNT 9.2 x10^3/uL (4.0-11.0)
[2019-04-08 05:58] LABS: FECAL OB PT NEGATIVE (NEG)
[2019-04-08 06:03] LABS: CALCIUM 8.8 mg/dL (8.5-10.1); CREATININE 1.8 mg/dL (0.7-1.3); POTASSIUM 3.7 mmol/L (3.5-5.1)
--- NOTE | 2019-04-08 18:29 | DS ---
DATE OF DISCHARGE: 04/08/2019 ATTENDING PHYSICIAN: Dr. Montes FINAL DIAGNOSES: 1. Dizziness related to medication. 2. Dehydration secondary to diuretics. 3. Chronic kidney disease stage 3. 4. Cardiomyopathy, etiology uncertain. 5. Labile hypertension with questionable compliance. 6. Probable hypertensive cardiovascular disease. 7. Type 2 diabetes with questionable control. 8. History of diabetic retinopathy. HISTORY OF PRESENT ILLNESS: This 48-year-old gentleman recently moved here from [place], presented to the ED with dizziness. He was at work. He had no vertigo symptoms. He denied any recent alcohol or substance abuse. He has anemia. He had hemoglobin chronically low at 8.5 g/dL. Blood sugar was 150. He has an estimated ejection fraction by history of 30%. His creatinine was elevated at 1.9 mg/dL due to diuretics. Diuretics were held. We gave him gentle IV hydration. PHYSICAL EXAMINATION: Please see the dictated note. PERTINENT LABORATORY AND X-RAY STUDIES: His chest x-ray showed no overt decompensation. The lung jean were clear and free of infiltrates. The costophrenic angles were sharp. Heart size was at the upper limits of normal. No acute pathology identified. Laboratory studies showed hemoglobin of 8.5 g/dL, repeated the next day with the same at 8.6 mg/dL, white count was 9200. Chemistry panel showed creatinine of 1.9, repeated next day was down to 1.8 mg percent, potassium 3.7 mEq. First troponin was 0.04, second one 0.03, both of these were below the range of abnormals at this hospital. Nonfasting blood sugar was 121. COURSE IN THE HOSPITAL: The patient was admitted. We ordered serial enzymes. I held his diuretics. I gave him gentle IV hydration with saline. His symptoms improved. He was better the next day. He was eating. There were no signs of GI distress. He had no pains or shortness of breath. His vital signs the next day were quite stable. His blood pressure was improved in a controlled environment to 121 and 135 mmHg respectively, heart rate 75. He was afebrile. His lungs were clear and he had oxygen saturations of 94% on room air. He wanted to go home. We had the ER initially order a Cardiology consult. We postponed it and he can do this as an outpatient per patient's request. Therefore, he is discharged home. I have asked that he hold his Aldactone until his weight goes up, then he can restart this at his discretion. He should continue his Coreg 25 mg b.i.d. along with his Lipitor 80 mg daily, hydralazine 25 mg t.i.d., Lantus insulin 55 units b.i.d. The patient was then discharged from our hospital in stable condition with ____ care. He will followup with his PCP. FIORDALIZA MONTES MD DR: TRACI/deann JOB#: [id number] / [id number]
--- NOTE | 2019-04-14 16:15 | EKG ---
[address] [address] Test Date: 2019-04-07 Test Time: 16:29:04 Pat Name: GARRET WATTS Department: Room: 115 A Gender: M Assemblyman Or Woman: : 1970 Requested By: ESSIE WOOD Order Number: [id number] Reading MD: Measurements Intervals [place] Rate: P: GA: QRS: QRSD: T: QT: QTc: Interpretive Statements
== END 2019-04-08 08:50 | disposition home or self-care (01) ==
LOC: ER 14:44 → 1 SOUTH 17:33 → INTOOBSV 17:33
PROVIDERS: ADMIT Hospitalist; ATTEND Hospitalist
DX: R42 Dizziness and giddiness (principal); I43 Cardiomyopathy in diseases classified elsewhere; R74.8 Abnormal levels of other serum enzymes; E86.0 Dehydration; E11.22 Type 2 diabetes mellitus with diabetic chronic kidney disease; I13.0 Hypertensive heart and chronic kidney disease with heart failure and stage 1 through stage 4 chronic kidney disease, or unspecified chronic kidney disease; N18.3 Chronic kidney disease, stage 3 (moderate); I50.9 Heart failure, unspecified; D63.1 Anemia in chronic kidney disease; E78.5 Hyperlipidemia, unspecified; Z79.4 Long term (current) use of insulin; Z79.899 Other long term (current) drug therapy; T50.2X5A Adverse effect of carbonic-anhydrase inhibitors, benzothiadiazides and other diuretics, initial encounter; E11.319 Type 2 diabetes mellitus with unspecified diabetic retinopathy without macular edema; Z98.890 Other specified postprocedural states
CPT/HCPCS: 36415; 71045; 80048; 80053; 80307; 82274; 82553; 82947; 83735; 83880; 84484; 85025; 85027; 93005; 96361; 96372; 96374; 96375; 99284; G0378; J0360; J1815; J1940; J8597; G0379; J7030

== ENCOUNTER 2019-04-11 09:25 | Emergency (ER) | payer OTHER ==
[~2019-04-11] VITALS: Ht 175.3 cm; Wt 114.0 kg
[~2019-04-11 09:25] MED LIST changes: +HYDR-2868 PO; +SPIR25TA5 PO
[2019-04-11] MEDS ORDERED: KETOROLAC 15 MG/ML VIAL. IV ONE (09:45)
[2019-04-11] MEDS ORDERED: FAMOTIDINE 20 MG/2 ML VIAL IVP ONE (09:45)
[2019-04-11] MEDS ORDERED: IV NORMAL SALINE 1,000ML 1,000 ML IV ONE (09:45)
[2019-04-11] MEDS ORDERED: ONDANSETRON PF 4 MG/2 ML VIAL. IV ONE (09:45)
[2019-04-11 10:15] LABS: BASO # 0.1 x10^3/uL (0.0-0.2); BASO % 1 % (0-3); EOS # 0.2 x10^3/uL (0.0-0.7); EOS % 2 % (0-3); HEMATOCRIT 25.6 % (39.0-53.0); HEMOGLOBIN 8.7 g/dL (13.0-17.5); LYMPH # 1.2 x10^3/uL (1.0-4.8); LYMPH % 12 % (24-48); MEAN CORPUSCULAR HEMOGLOBIN 35 pg (25-35); MEAN CORPUSCULAR HGB CONC 34 g/dL (31-37); MEAN CORPUSCULAR VOLUME 102 fL (79-100); MONO # 1.2 x10^3/uL (0.0-1.1); MONO % 11 % (0-9); NEUT # 7.8 x10^3uL (1.8-7.7); NEUT % 74 % (31-73); PLATELET COUNT 284 x10^3/uL (140-400); RED BLOOD COUNT 2.51 x10^6/uL (4.30-5.70); WHITE BLOOD COUNT 10.5 x10^3/uL (4.0-11.0)
--- NOTE | 2019-04-11 10:23 | PHYS DOC ---
Past History Past Medical History: Anemia, CAD, Diabetes, Other Past Surgical History: No Surgical History, Other Smoking: Non-smoker Alcohol Use: None Drug Use: None Adult General Chief Complaint Chief Complaint: ABDOMINAL PAIN HPI HPI Patient is a 48 year old male who presents with abdominal pain. This morning at 9am he became nauseated and felt like he needed to "go to the bathroom". Reports he started having severe lower abdominal pain that radiated around to his back. He had three episodes of diarrhea within an hour. He reports nausea without actually vomiting. Denies known sick contacts. Denies fever. Denies hematochezia. Reports he is currently having no pain but is feeling nauseated. Review of Systems Review of Systems Constitutional: Denies fever or chills Eyes: Denies redness or eye pain HENT: Denies nasal congestion or sore throat Respiratory: Denies cough or shortness of breath Cardiovascular: Denies chest pain or palpitations GI: Reports abdominal pain, diarrhea, and nausea, denies vomiting : Denies dysuria or hematuria Musculoskeletal: Denies back pain or joint pain Integument: Denies rash or skin lesions Neurologic: Denies headache, focal weakness or sensory changes Complete systems were reviewed and found to be within normal limits, except as documented in this note. Current Medications Current Medications Current Medications Medications (Trade) Dose Ordered Sig/Olivia Start Time Stop Time Status Last Admin Dose Admin Famotidine (Pepcid Vial) 20 mg 1X ONCE 04/11/19 09:45 04/11/19 09:47 DC 04/11/19 09:56 20 MG Ketorolac Tromethamine (Toradol 15mg Vial) 15 mg 1X ONCE 04/11/19 09:45 04/11/19 09:47 DC 04/11/19 09:56 15 MG Ondansetron HCl (Zofran) 4 mg 1X ONCE 04/11/19 09:45 04/11/19 09:47 DC 04/11/19 09:56 4 MG Sodium Chloride 1,000 ml @ 1,000 mls/hr 1X ONCE 04/11/19 09:45 04/11/19 10:44 04/11/19 09:56 1,000 MLS/HR Allergies Allergies Allergies Coded Allergies Type Severity Reaction Last Updated Verified No Known Drug Allergies 04/11/19 No Physical Exam Physical Exam Constitutional: Well developed, well nourished, no acute distress, non-toxic appearance HENT: Normocephalic, atraumatic, oropharynx moist Eyes: Conjunctiva normal, no discharge Neck: Normal range of motion, no tenderness, supple Cardiovascular: Heart rate normal, regular rhythm Lungs & Thorax: Bilateral breath sounds clear to auscultation, no wheezing Abdomen: Soft, no tenderness, no peritoneal signs Skin: Warm, dry, no erythema, no rash Back: No tenderness, no CVA tenderness Extremities: No tenderness, ROM intact, no edema Neurologic: Alert and oriented X 3, normal motor function, normal sensory function, no focal deficits noted Psychologic: Affect normal, judgement normal, mood normal Current Patient Data Vital Signs Vital Signs Date Time Temp Pulse Resp B/P (MAP) Pulse Ox O2 Delivery O2 Flow Rate FiO2 04/11/19 09:35 98.5 72 18 99 Room Air EKG EKG [] Radiology/Procedures Radiology/Procedures [] Course & Med Decision Making Course & Med Decision Making Pertinent Lab studies reviewed. (See chart for details) Mr. Beltran is a 48-year-old male presents with abdominal pain. He had sudden onset diarrhea and lower abdominal pain this morning lasting an hour, and has improved. On physical exam his abdomen is soft with no tenderness. No peritoneal signs noted. Laboratory evaluation showed known anemia and elevated creatinine that is at his baseline. He has hypomagnesemia that was replaced with oral magnesium. His abdominal pain and diarrhea are most likely due to a viral ill ness. He is given Levsin and Zofran for symptomatic treatment. Patient stable for discharge with outpatient follow-up with PCP. Discussed findings and plan with patient, who acknowledges understanding and agreement. Dragon Disclaimer Dragon Disclaimer This electronic medical record was generated, in whole or in part, using a voice recognition dictation system. Departure Departure: Impression: Primary Impression: Abdominal pain Additional Impressions: Diarrhea Hypomagnesemia Disposition: 01 HOME, SELF-CARE Condition: STABLE Referrals: CHAI GOMEZ MD (PCP) Patient Instructions: Abdominal Pain (Nonspecific), Diarrhea, [id number], Diet for Diarrhea, Adult, Hypomagnesemia Scripts Ondansetron (ONDANSETRON ODT) 4 Mg Tab.rapdis 1 TAB PO PRN Q6-8HRS PRN for NAUSEA, #16 TAB Prov: JONO JONES DO 04/11/19 Hyoscyamine Sulfate (LEVSIN-SL) 0.125 Mg Tab.subl 1-2 TAB SL PRN Q4HRS PRN for PAIN, #14 TAB Prov: JONO JONES DO 04/11/19 Problem Qualifiers Primary Impression: Abdominal pain Abdominal location: lower abdomen, unspecified Qualified Codes: R10.30 - Lower abdominal pain, unspecified Additional Impressions: Diarrhea Diarrhea type: unspecified type Qualified Codes: R19.7 - Diarrhea, unspecified JONO JONES DO Apr 11, 2019 10:23
[2019-04-11 10:32] LABS: BILIRUBIN,URINE NEG (NEG); CLARITY,URINE CLEAR; COLOR,URINE YELLOW; GLUCOSE,URINE NEG (NEG)
[2019-04-11 10:33] LABS: BACTERIA,URINE 0 /HPF (0-FEW); HYALINE CASTS, URINE FEW /HPF; NITRITE,URINE NEG (NEG); SQUAMOUS EPITHELIAL CELL,UR OCC /LPF; UROBILINOGEN,URINE 0.2 mg/dL (0.2 mg/dL); WBC,URINE RARE /HPF (0-4)
[2019-04-11 10:56] LABS: ALBUMIN 3.5 g/dL (3.4-5.0); ALBUMIN/GLOBULIN RATIO 0.9 (1.0-1.7); CALCIUM 8.8 mg/dL (8.5-10.1); CREATININE 1.7 mg/dL (0.7-1.3); GFR 52.3; MAGNESIUM 1.5 mg/dL (1.8-2.4); TOTAL BILIRUBIN 0.8 mg/dL (0.2-1.0); TOTAL PROTEIN 7.2 g/dL (6.4-8.2)
[2019-04-11] MEDS ORDERED: HYOS0.1265 SL (11:01)
[2019-04-11] MEDS ORDERED: ONDA4TAB12 PO (11:02)
[2019-04-11 11:05] VITALS: BP 167/93
[2019-04-11] MEDS ORDERED: MAGNESIUM CHLORIDE ER 64 MG TABLET.ER PO ONE (11:15)
== END 2019-04-11 11:12 | disposition home or self-care (01) ==
LOC: ER 09:25
DX: R19.7 Diarrhea, unspecified (principal); R10.30 Lower abdominal pain, unspecified; E83.42 Hypomagnesemia; I25.10 Atherosclerotic heart disease of native coronary artery without angina pectoris; E11.9 Type 2 diabetes mellitus without complications; Z86.2 Personal history of diseases of the blood and blood-forming organs and certain disorders involving the immune mechanism
CPT/HCPCS: 36415; 80053; 81001; 83690; 83735; 85025; 96361; 96374; 96375; 99284; J1885; J2405; J3490; J7030

== ENCOUNTER 2019-04-27 14:05 | Observation (INO) | payer OTHER ==
[~2019-04-27] VITALS: Ht 175.3 cm; Wt 116.7 kg
[~2019-04-27 14:05] MED LIST changes: +HYOS0.1265 SL; +ONDA4TAB12 PO
--- NOTE | 2019-04-27 14:35 | PHYS DOC ---
Past History Past Medical History: Anemia, CAD, Diabetes, Other Additional Past Medical Histor: cardiomyopathy Past Surgical History: No Surgical History Smoking: Non-smoker Alcohol Use: None Drug Use: None Adult General Chief Complaint Chief Complaint: CHEST PAIN HPI HPI Patient is a 48-year-old male presents with chest discomfort for the past several hours. Not as bad as his previous heart attack. He denies having any previous stents. No nausea or vomiting. No diaphoresis. No radiation of the discomfort. Denies any PE risk factors. He is treated for diabetes and hypertension, and has a history of cardiomyopathy. Exertion and moving makes the symptoms worse. Better with rest. He was brought in by EMS who gave him aspirin in route. Symptoms are currently mild to moderate.[] Review of Systems Review of Systems Constitutional: Denies fever or chills [] Eyes: Denies change in visual acuity, redness, or eye pain [] HENT: Denies nasal congestion or sore throat [] Respiratory: Denies cough or shortness of breath [] Cardiovascular: No additional information not addressed in HPI [] GI: Denies abdominal pain, nausea, vomiting, bloody stools or diarrhea [] : Denies dysuria or hematuria [] Musculoskeletal: Denies back pain or joint pain [] Integument: Denies rash or skin lesions [] Neurologic: Denies headache, focal weakness or sensory changes [] Endocrine: Denies polyuria or polydipsia [] All other systems were reviewed and found to be within normal limits, except as documented in this note. Allergies Allergies Allergies Coded Allergies Type Severity Reaction Last Updated Verified No Known Drug Allergies 04/11/19 No Physical Exam Physical Exam Constitutional: Well developed, well nourished, no acute distress, non-toxic appearance. [] HENT: Normocephalic, atraumatic, bilateral external ears normal, oropharynx moist, no oral exudates, nose normal. [] Eyes: PERRLA, EOMI, conjunctiva normal, no discharge. [] Neck: Normal range of motion, no tenderness, supple, no stridor. [] Cardiovascular:Heart rate regular rhythm, no murmur [] Lungs & Thorax: Bilateral breath sounds clear to auscultation [] Abdomen: Bowel sounds normal, soft, no tenderness, no masses, no pulsatile masses. [] Skin: Warm, dry, no erythema, no rash. [] Back: No tenderness, no CVA tenderness. [] Extremities: No tenderness, no cyanosis, no clubbing, ROM intact, no edema. [] Neurologic: Alert and oriented X 3, normal motor function, normal sensory function, no focal deficits noted. [] Psychologic: Affect normal, judgement normal, mood normal. [] Current Patient Data Vital Signs Vital Signs Date Time Temp Pulse Resp B/P (MAP) Pulse Ox O2 Delivery O2 Flow Rate FiO2 04/27/19 14:11 97.8 77 18 98 Room Air EKG EKG EKG shows a sinus rhythm at 78 bpm, left axis, QTC 460 ms, no ST elevation. Interpreted by me at 1422.[] Radiology/Procedures Radiology/Procedures PROCEDURE: PORTABLE CHEST 1V Chest radiograph 04/27/2019 2:06 PM INDICATION: Chest pain COMPARISON: April 07, 2019. TECHNIQUE: Frontal view of the chest is provided. FINDINGS: The cardiomediastinal silhouette is within normal limits. There are no pleural effusions. There is no pulmonary vascular congestion. There is no pneumothorax. The lungs are clear. No significant osseous abnormality is identified. IMPRESSION: No acute cardiopulmonary process.[] Course & Med Decision Making Course & Med Decision Making Pertinent Labs and Imaging studies reviewed. (See chart for details) ED course: Patient arrived by EMS, was transferred from their cot to our bed, and tolerated exam well. He had already received aspirin from EMS so additional doses were withheld. After the return of laboratory and imaging studies, these were discussed with the patient who voiced understanding. Consultation was made with the hospitalist who graciously admitted. Patient was admitted in improved condition with all questions answered. Medical decision making: Concerned about possible acute coronary syndrome given patient's history of high blood pressure, diabetes, cardiomyopathy, and previous heart attack. Do not see any evidence of a STEMI or N STEMI at this time. No evidence of pneumonia or pneumothorax. No evidence of dissecting aneurysm nor esophageal rupture. He is being admitted for further evaluation and treatment.[] Dragon Disclaimer Dragon Disclaimer This electronic medical record was generated, in whole or in part, using a voice recognition dictation system. Departure Departure: Impression: Primary Impression: Chest pain Additional Impression: Diabetes Disposition: ADMITTED INPATIENT Admitting Physician: Shaggy Arroyo Condition: IMPROVED Referrals: CHAI GOMEZ MD (PCP) Problem Qualifiers Primary Impression: Chest pain Chest pain type: unspecified Qualified Codes: R07.9 - Chest pain, unspecified Additional Impression: Diabetes Diabetes mellitus type: type 1 Diabetes mellitus complication status: with other specified complication Qualified Codes: E10.69 - Type 1 diabetes mellitus with other specified complication ANJELICA FONSECA DO Apr 27, 2019 14:35
--- NOTE | 2019-04-27 14:48 | RAD ---
Chest radiograph 04/27/2019 2:06 PM INDICATION: Chest pain COMPARISON: April 07, 2019. TECHNIQUE: Frontal view of the chest is provided. FINDINGS: The cardiomediastinal silhouette is within normal limits. There are no pleural effusions. There is no pulmonary vascular congestion. There is no pneumothorax. The lungs are clear. No significant osseous abnormality is identified. IMPRESSION: No acute cardiopulmonary process. Electronically signed by: Luz Mcmanus MD (04/27/2019 2:45 PM) [facility]
[2019-04-27 14:57] LABS: ALBUMIN 3.6 g/dL (3.4-5.0); ALBUMIN/GLOBULIN RATIO 0.9 (1.0-1.7); CALCIUM 8.9 mg/dL (8.5-10.1); CREATININE 1.9 mg/dL (0.7-1.3); MAGNESIUM 2.1 mg/dL (1.8-2.4); POTASSIUM 3.9 mmol/L (3.5-5.1); TOTAL BILIRUBIN 0.6 mg/dL (0.2-1.0); TOTAL PROTEIN 7.6 g/dL (6.4-8.2)
[2019-04-27 14:59] LABS: BASO # 0.1 x10^3/uL (0.0-0.2); BASO % 1 % (0-3); EOS # 0.1 x10^3/uL (0.0-0.7); EOS % 2 % (0-3); HEMATOCRIT 26.3 % (39.0-53.0); HEMOGLOBIN 8.6 g/dL (13.0-17.5); LYMPH # 1.3 x10^3/uL (1.0-4.8); LYMPH % 15 % (24-48); MEAN CORPUSCULAR HEMOGLOBIN 34 pg (25-35); MEAN CORPUSCULAR HGB CONC 33 g/dL (31-37); MEAN CORPUSCULAR VOLUME 103 fL (79-100); MONO # 0.9 x10^3/uL (0.0-1.1); MONO % 10 % (0-9); NEUT # 6.4 x10^3uL (1.8-7.7); NEUT % 73 % (31-73); PLATELET COUNT 351 x10^3/uL (140-400); RED BLOOD COUNT 2.56 x10^6/uL (4.30-5.70); RED CELL DISTRIBUTION WIDTH 13.6 % (11.5-14.5); WHITE BLOOD COUNT 8.8 x10^3/uL (4.0-11.0)
[2019-04-27 15:24] LABS: BARBITURATES NEG (NEG); BENZODIAZEPINES NEG (NEG); CANNABINOIDS NEG (NEG); COCAINE NEG (NEG); METHADONE NEG (NEG); OPIATES NEG (NEG); PHENCYCLIDINE NEG (NEG)
[2019-04-27 15:31] LABS: AMPHETAMINE/METHAMPHETAMINE NEG (NEG)
[2019-04-27 15:36] LABS: BACTERIA,URINE 0 /HPF (0-FEW); BILIRUBIN,URINE NEG (NEG); CLARITY,URINE CLEAR; COLOR,URINE YELLOW; GLUCOSE,URINE 100 mg/dL (NEG); HYALINE CASTS, URINE OCC /HPF; NITRITE,URINE NEG (NEG); SQUAMOUS EPITHELIAL CELL,UR OCC /LPF; UROBILINOGEN,URINE 1 mg/dL (0.2 mg/dL)
[2019-04-27] MEDS ORDERED: IV NORMAL SALINE 1,000ML 1,000 ML IV SCH (16:25)
[2019-04-27] MEDS ORDERED: ONDANSETRON PF 4 MG/2 ML VIAL. IV PRN (16:30)
[2019-04-27] MEDS ORDERED: NITROGLYCERIN SUBLINGUAL 0.4 MG BOTTLE OF 25. SL PRN (16:30)
[2019-04-27] MEDS ORDERED: MORPHINE SULFATE 2 MG/ML DISP.SYRIN. IV PRN (16:30)
[2019-04-27] MEDS ORDERED: ACETAMINOPHEN 325 MG TABLET PO PRN (16:30)
[2019-04-27] MEDS ORDERED: amLODIPine BESYLATE 5 MG TABLET PO ONE (17:45)
[2019-04-27] MEDS ORDERED: CARVEDILOL 12.5 MG TABLET PO SCH (18:00)
[2019-04-27] MEDS ORDERED: AMLO5TAB10 PO (18:30)
[2019-04-27] MEDS ORDERED: MAGN400T22 PO (18:30)
[2019-04-27] MEDS ORDERED: BUME2TAB3 PO (18:30)
[2019-04-27 18:35] VITALS: BP 198/93
--- NOTE | 2019-04-27 18:51 | EKG ---
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
[2019-04-27 19:14] VITALS: BP 183/89
[2019-04-27] MEDS ORDERED: ONDANSETRON ODT 4 MG TAB.RAPDIS PO PRN (20:45)
[2019-04-27] MEDS ORDERED: SPIR25TA5 PO (20:49)
[2019-04-27] MEDS ORDERED: INSULIN GLARGINE 300 UNITS/3 ML INSULN.PEN. SQ SCH (21:00)
[2019-04-27] MEDS: hydrALAZINE 25 MG TABLET PO SCH (21:03)
[2019-04-27] MEDS: SACUBITRIL/VALSARTAN 24/26MG TABLET. PO SCH (21:03)
[2019-04-27] MEDS: INSULIN GLARGINE 300 UNITS/3 ML INSULN.PEN. SQ SCH (21:19)
[2019-04-27 23:15] VITALS: BP 151/78
[2019-04-28 05:37] VITALS: BP 152/84
--- NOTE | 2019-04-28 07:21 | PDOC2 ---
CARDIAC CONSULT DATE OF CONSULT Date Of Consult DATE: 04/28/19 TIME: 07:17 REASON FOR CONSULT Reason for Consult Chest pain DM HTN REFERRING PHYSICIAN Referring Physician Dr. Carroll SOURCE Source: Chart review, Patient HPI History of Present Illness This is a yo male, with a history of NICM LVEF 30%, HTN, and DMII, who presented secondary to chest pain. Patient reports he was at work at [employer] yesterday and began have tightness in his central chest around 11:30. Non-radiating. Associated with slight shortness of breath and headache. No dizziness, diaphoresis, palpitation, vision changes, or nausea/vomiting. Tightness seemed to be worse with movement. No recent illness/fevers, orthopnea, or MOHR. Does reports some LE edema following a long day at work. Generally resolves overnight. Blood pressure significantly elevated upon arrival to the ED. Patient reports that he did not take his blood pressure medications yesterday or the day prior as he stayed overnight at a hotel and did not have his medications. Pain resolved following blood pressure control and has had no further pain/tightness overnight. Follows with [facility] Cardiology. PAST MEDICAL HISTORY Cardiovascular: CHF (NICM), HTN, hyperipidemia Pulmonary: Other (TEMITOPE) Heme/Onc: Anemia NOS Renal/: Chronic renal insuff Endocrine: Diabetes PAST SURGICAL HISTORY Past Surgical History: No pertinent history FAMILY HISTORY Family History: Diabetes, Hypertension SOCIAL HISTORY Smoke: No ALCOHOL: none Drugs: None Lives: with Family CURRENT MEDICATIONS Current Medications Current Medications Ondansetron HCl (Zofran) 4 mg PRN Q4HRS PRN IV NAUSEA/VOMITING; Start 04/27/19 at 16:30; Stop 04/28/19 at 16:29 Morphine Sulfate (Morphine 2mg Syringe) 2 mg PRN Q2HR PRN IV PAIN; Start 04/27/19 at 16:30; Stop 04/28/19 at 16:29 Sodium Chloride 1,000 ml @ 125 mls/hr Q8H IV Last administered on 04/27/19at 18:01; Start 04/27/19 at 16:25; Stop 04/27/19 at 21:31; Status DC Acetaminophen (Tylenol) 650 mg PRN Q4HRS PRN PO FEVER; Start 04/27/19 at 16:30; Stop 04/28/19 at 16:29 Nitroglycerin (Nitrostat) 0.4 mg PRN Q5MIN PRN SL CHEST PAIN; Start 04/27/19 at 16:30; Stop 04/28/19 at 16:29 Amlodipine Besylate (Norvasc) 5 mg 1X ONCE PO Last administered on 04/27/19at 18:01; Start 04/27/19 at 17:45; Stop 04/27/19 at 17:49; Status DC Carvedilol (Coreg) 12.5 mg BIDWMEALS PO Last administered on 04/27/19at 18:38; Start 04/27/19 at 18:00; Stop 04/27/19 at 20:51; Status DC Sacubitril/ Valsartan (Entresto 24 Mg-26 Mg) 1 tab BID PO Last administered on 04/27/19at 21:03; Start 04/27/19 at 21:00 Insulin Glargine (Lantus) 55 units BID SQ ; Start 04/27/19 at 21:00; Stop 04/27/19 at 21:08; Status DC Amlodipine Besylate (Norvasc) 5 mg DAILY PO ; Start 04/28/19 at 09:00 Carvedilol (Coreg) 25 mg BIDWMEALS PO ; Start 04/28/19 at 08:00 Hydralazine HCl (Apresoline) 25 mg BID PO Last administered on 04/27/19at 21:03; Start 04/27/19 at 21:00 Magnesium Oxide (Magnesium Oxide) 400 mg DAILY PO ; Start 04/28/19 at 09:00 Ondansetron HCl (Zofran Odt) 4 mg PRN Q8HRS PRN PO NAUSEA/VOMITING; Start 04/27/19 at 20:45 Insulin Glargine (Lantus) 30 units BID SQ Last administered on 04/27/19at 21:19; Start 04/27/19 at 21:15 Active Scripts Active Ondansetron Odt (Ondansetron) 4 Mg Tab.rapdis 1 Tab PO PRN Q6-8HRS PRN Levsin-Sl (Hyoscyamine Sulfate) 0.125 Mg Tab.subl 1-2 Tab SL PRN Q4HRS PRN Reported Spironolactone 25 Mg Tablet 1 Tab PO DAILY Mag-Oxide (Magnesium Oxide) 400 Mg Tablet 1 Tab PO DAILY Bumetanide 2 Mg Tablet 2 Mg PO BID Amlodipine Besylate 5 Mg Tablet 5 Mg PO DAILY Lantus Solostar (Insulin Glargine,Hum.rec.anlog) 100 Unit/1 Ml Insuln.pen 30 Unit SQ BID Hydralazine Hcl 25 Mg Tablet 25 Mg PO BID Carvedilol 25 Mg Tablet 25 Mg PO BID ALLERGIES Allergies: Coded Allergies: No Known Drug Allergies (Unverified , 04/11/19) ROS Review of Systems 14 point ROS conducted with pertinent positives noted above in HPI. PHYSICAL EXAM General: Alert, Oriented X3, Cooperative, No acute distress HEENT: Atraumatic, Mucous membr. moist/pink Lungs: Clear to auscultation, Normal air movement Heart: Regular rate, Normal S1, Normal S2 Abdomen: Soft, No tenderness Extremities: Other (trace bilateral LE edema ) Skin: No breakdown Neuro: Normal speech, Sensation intact Psych/Mental Status: Mental status NL, Mood NL MUSCULOSKELETAL: No deformity VITALS Vital Signs Vital Signs Date Time Temp Pulse Resp B/P (MAP) Pulse Ox O2 Delivery O2 Flow Rate FiO2 04/28/19 05:37 98.2 70 16 152/84 (106) 94 Room Air LABS LABS Laboratory Tests Test 04/27/19 14:25 04/27/19 14:49 04/27/19 19:50 04/27/19 20:56 White Blood Count 8.8 x10^3/uL (4.0-11.0) Red Blood Count 2.56 x10^6/uL (4.30-5.70) Hemoglobin 8.6 g/dL (13.0-17.5) Hematocrit 26.3 % (39.0-53.0) Mean Corpuscular Volume 103 fL (79-100) Mean Corpuscular Hemoglobin 34 pg (25-35) Mean Corpuscular Hemoglobin Concent 33 g/dL (31-37) Red Cell Distribution Width 13.6 % (11.5-14.5) Platelet Count 351 x10^3/uL (140-400) Neutrophils (%) (Auto) 73 % (31-73) Lymphocytes (%) (Auto) 15 % (24-48) Monocytes (%) (Auto) 10 % (0-9) Eosinophils (%) (Auto) 2 % (0-3) Basophils (%) (Auto) 1 % (0-3) Neutrophils # (Auto) 6.4 x10^3uL (1.8-7.7) Lymphocytes # (Auto) 1.3 x10^3/uL (1.0-4.8) Monocytes # (Auto) 0.9 x10^3/uL (0.0-1.1) Eosinophils # (Auto) 0.1 x10^3/uL (0.0-0.7) Basophils # (Auto) 0.1 x10^3/uL (0.0-0.2) Prothrombin Time 11.0 SEC (9.4-11.4) Prothromb Time International Ratio 1.1 (0.9-1.1) Activated Partial Thromboplast Time 28 SEC (23-33) Sodium Level 140 mmol/L (136-145) Potassium Level 3.9 mmol/L (3.5-5.1) Chloride Level 107 mmol/L (98-107) Carbon Dioxide Level 24 mmol/L (21-32) Anion Gap 9 (6-14) Blood Urea Nitrogen 28 mg/dL (8-26) Creatinine 1.9 mg/dL (0.7-1.3) Estimated GFR (Cockcroft-Gault) 46.0 BUN/Creatinine Ratio 15 (6-20) Glucose Level 141 mg/dL (70-99) Calcium Level 8.9 mg/dL (8.5-10.1) Magnesium Level 2.1 mg/dL (1.8-2.4) Total Bilirubin 0.6 mg/dL (0.2-1.0) Aspartate Amino Transf (AST/SGOT) 33 U/L (15-37) Alanine Aminotransferase (ALT/SGPT) 43 U/L (16-63) Alkaline Phosphatase 107 U/L (46-116) Troponin I Quantitative 0.025 ng/mL (0-0.055) 0.017 ng/mL (0-0.055) Total Protein 7.6 g/dL (6.4-8.2) Albumin 3.6 g/dL (3.4-5.0) Albumin/Globulin Ratio 0.9 (1.0-1.7) Lipase 85 U/L (73-393) Urine Collection Type Unknown Urine Color Yellow Urine Clarity Clear Urine pH 5.5 Urine Specific [place] >=1.030 Urine Protein >100 mg/dl (NEG-TRACE) Urine Glucose (UA) 100 mg/dL (NEG) Urine Ketones (Stick) Neg mg/dL (NEG) Urine Blood Mod (NEG) Urine Nitrite Neg (NEG) Urine Bilirubin Neg (NEG) Urine Urobilinogen Dipstick 1 mg/dL (0.2 mg/dL) Urine Leukocyte Esterase Neg (NEG) Urine RBC 3-5 /HPF (0-2) Urine WBC 1-4 /HPF (0-4) Urine Squamous Epithelial Cells Occ /LPF Urine Bacteria 0 /HPF (0-FEW) Urine Hyaline Casts Occ /HPF Urine Mucus Slight /LPF Urine Opiates Screen Neg (NEG) Urine Methadone Screen Neg (NEG) Urine Barbiturates Neg (NEG) Urine Phencyclidine Screen Neg (NEG) Urine Amphetamine/Methamphetamine Neg (NEG) Urine Benzodiazepines Screen Neg (NEG) Urine Cocaine Screen Neg (NEG) Urine Cannabinoids Screen Neg (NEG) Urine Ethyl Alcohol Neg (NEG) Glucose (Fingerstick) 204 mg/dL (70-99) Test 04/27/19 22:00 Troponin I Quantitative 0.028 ng/mL (0-0.055) ECHOCARDIOGRAM Echocardiogram 05/02/17 Echocardiogram from from [facility] [place] in [place] in showed an ejection fraction of 30-35% DATE: 04/07/18 1442 <Conclusion> The Left Ventricle is borderline dilated. The systolic function is moderate to moderately severely impaired. The Ejection Fraction is estimated at 30%. There is global hypokinesis of the left ventricle. There is mild to moderate concentric left ventricular hypertrophy. There is no significant aortic valvular stenosis. Doppler and Color Flow revealed trace aortic regurgitation. Doppler and Color-flow revealed trace to mild mitral regurgitation. Doppler and Color Flow revealed trace to mild tricuspid regurgitation. HEART CATH Heart Cath Old records obtained. Heart catheterization from 8�09�17 from [facility] [place] in [place] shows no evidence of significant coronary artery disease. ASSESSMENT/PLAN Assessment/Plan 1. Chest pain, atypical. AMI ruled out. Heart catheterization 04/2017 without evidence of significant coronary artery disease as noted above. Most probably secondary to uncontrolled HTN 2. Accelerated hypertension; improved, but remains elevated 3. Chronic systolic HF with NICM; LVEF 30% per echo 03/2018. Follows with [facility] Cardiology. Appears compensated 4. Diabetes, II; as per PCP 5. PRATIK on CKD 6. TEMITOPE Recommendations ASA Echo to assess LV systolic function Lipid panel Resume home antiHTN therapy. Monitor to assess need for therapy titration Continue optimization therapy for NICM including KAMALA Biggs APRN Apr 28, 2019 07:21
[2019-04-28] MEDS ORDERED: CARVEDILOL 12.5 MG TABLET PO SCH (08:00)
[2019-04-28] MEDS: hydrALAZINE 25 MG TABLET PO SCH (08:26)
[2019-04-28] MEDS: INSULIN GLARGINE 300 UNITS/3 ML INSULN.PEN. SQ SCH (08:26)
[2019-04-28] MEDS ORDERED: MAGNESIUM OXIDE 400 MG TABLET PO SCH (09:00)
[2019-04-28] MEDS ORDERED: amLODIPine BESYLATE 5 MG TABLET PO SCH (09:00)
[2019-04-28] MEDS: SACUBITRIL/VALSARTAN 24/26MG TABLET. PO SCH (09:18)
[2019-04-28 11:01] VITALS: BP 150/73
--- NOTE | 2019-04-28 14:06 | DS ---
DATE OF DISCHARGE: 04/28/2019 HOSPITAL COURSE: The patient is resting, slightly propped up in bed, no apparent distress. He has had no further episode of chest pain or chest tightness. He has 3 sets of cardiac enzymes that ruled out myocardial infarction, was seen by the Cardiology team and they recommended that the patient can be discharged. He did have an order for an echocardiogram to be repeated; however, he has an appointment to have it done at the [facility] Cardiology group today at 3:30 and therefore, decision was made to discharge him home to follow with his primary Cardiology team. PHYSICAL EXAMINATION: GENERAL: When I saw him this afternoon, he looked well and was clearly in no apparent respiratory distress. No pallor, jaundice, cyanosis, or thyromegaly. No jugular venous distension. No lower limb edema. VITAL SIGNS: His heart rate was 68, blood pressure 150/73, temperature was 98.1, respiratory rate 20, and oxygen saturation was 95%. The rest of clinical exam is stable, has not really changed. The patient has 3 sets of cardiac enzymes that ruled out myocardial infarction. He apparently has had echocardiograms done at [facility] in [place], which showed an ejection fraction of 30-35%. Apparently, he has heart catheterization done at [facility] on 05/02/2017 from [facility] in [place] showed no evidence of significant coronary artery disease. DISCHARGE MEDICATIONS: The patient was discharged home to continue on following medications: Amlodipine besylate 5 mg once a day, bumetanide 2 mg twice a day, carvedilol 25 mg twice a day, hydralazine 25 mg twice a day, hyoscyamine sulfate for Levsin 0.125 mg 1-2 tablets sublingually every 4 hours as needed. He is on Lantus insulin 30 units twice a day, magnesium oxide 400 mg daily, ondansetron 4 mg every 6-8 hours for nausea and vomiting, spironolactone 25 mg daily. FINAL DISCHARGE DIAGNOSES: 1. Chest pain, atypical, myocardial infarction is ruled out. Other medical problems include nonischemic cardiomyopathy with resultant chronic systolic congestive heart failure with an ejection fraction of 30%, type 2 diabetes, seems to be reasonably controlled, [id number] kidney injury, stable and obstructive sleep apnea. Plan is for him to be discharged to follow up with his primary Cardiology team of [facility]. GUANAKO YOUNG MD DR: MONSERRAT/deann JOB#: [id number] / [id number]
--- NOTE | 2019-04-28 14:13 | HP ---
ADMIT DATE: HISTORY OF PRESENT ILLNESS: The patient is a 48-year-old -Citizen Of [place] male patient who came to the Emergency Room complaining of tightness in his central chest around 11:30. The tightness is nonradiating, associated with slight shortness of breath and headache. No dizziness, diaphoresis, palpitations, vision changes, nausea, vomiting. Chest tightness seemed to be worse with movement. Denied any recent illness, fever. Denied any orthopnea or paroxysmal nocturnal dyspnea. Denied any cough, phlegm or hemoptysis. He does complain of some left lower extremity edema following a long day at work; however, it resolved usually when he goes to bed. His blood pressure was significantly elevated on arrival to the Emergency Room. He stated that he has been taking his blood pressure medication, but the day prior as he stayed overnight at hotel and did not have his medication. He was evaluated in the Emergency Room. He has lab work showed that his first set of troponin was 0.017. His EKG showed he was in sinus rhythm with a heart rate of 78 beats per minute, left axis deviation, corrected QT interval of 460 milliseconds, no ST segment elevation. He was admitted and has had 2 more sets of cardiac enzyme, check his fasting lipid profile and consult the Cardiology team. PAST MEDICAL HISTORY: Significant for nonischemic cardiomyopathy with left ventricular ejection fraction of 30%. He is known to have hypertension, hyperlipidemia, type 2 diabetes, obstructive sleep apnea, chronic renal insufficiency and anemia of chronic kidney disease. PAST SURGICAL HISTORY: Significant for left heart catheterization. FAMILY HISTORY: Positive for diabetes and hypertension. SOCIAL HISTORY: He lives with his family. He does not smoke, drink alcohol or use recreational drugs. ALLERGIES: He has no known drug allergies. MEDICATIONS: He is currently on following medications: He is on hyoscyamine sulfate 0.125 mg tablet sublingually 1-2 tablets every 4 hours, hydralazine 25 mg twice a day, carvedilol 25 mg twice a day, amlodipine besylate 5 mg daily, spironolactone 25 mg daily, bumetanide 2 mg twice a day, magnesium oxide 400 mg daily, ondansetron 4 mg ODT every 6-8 hours. He is also on Lantus insulin 30 units twice a day. REVIEW OF SYSTEMS: As per history of present illness. PHYSICAL EXAMINATION: GENERAL: On arrival to the Emergency Room, he looked well and was clearly in no apparent respiratory distress, slightly pale, but no jaundice, cyanosis or thyromegaly. No jugular venous distention. No limb edema. VITAL SIGNS: His heart rate was 80, blood pressure was 184/101. His temperature was 97.8, respiratory rate was 18 and oxygen saturation was 98%. HEAD, EYES, EARS, NOSE AND THROAT: Showed normocephalic, atraumatic. NECK: Supple. HEART: Showed normal first and second heart sounds with no gallop, rub or murmur. CHEST: Clear to auscultation. No crepitation or rhonchi. ABDOMEN: Distended, soft, nontender. No guarding or rigidity. No organomegaly. All hernial orifice intact. Bowel sounds normal. NEUROLOGIC: He was awake, alert, responding appropriately. All cranial nerves are intact. He moves extremities without difficulty. PSYCHOLOGIC: The affect was normal. Judgment and mood were normal. His EKG showed that he was in sinus rhythm at a rate of 78 per minute. LABORATORY DATA: His lab work on admission showed a white cell count of 8800, hemoglobin 8.6, hematocrit 26, MCV 103 and platelet count of 351,000 with normal manual differential. His chemistry showed a serum sodium of 140, potassium 3.9, chloride 107, bicarbonate 24, anion gap of 9, BUN 28, creatinine 1.9, estimated GFR was 46 mL per minute. His glucose 141, calcium was 8.9, magnesium was 2.1. Total bilirubin was 0.6. AST, ALT, alkaline phosphatase were normal. First set of cardiac enzyme was 0.025. Total protein was 7.6, albumin 3.6. Lipase was 85. His prothrombin time was 11, INR of 1.1, aPTT was 28. Urinalysis showed the urine was yellow, clear with a pH of 5.5, specific gravity of 1.030. The urine protein was more than 100 mg/dL, small amount of glucose, negative for ketones, moderate amount of blood, negative for nitrite, bilirubin and leukocyte esterase. There are only 3-5 rbc's, 1-4 wbc's, and no bacteria. His tox screen was negative. His chest x-ray showed that the cardiomediastinal silhouette is within normal limits. There are no pleural effusion, no pulmonary vascular congestion, no pneumothorax. Lungs are clear. No significant osseous abnormalities identified. ASSESSMENT AND PLAN: The patient was admitted with chest pain to rule out myocardial infarction. We will do 2 more sets of cardiac enzyme. We will consult the credit collections manager and meanwhile, we will continue all his medication and decide on further management accordingly. GUANAKO YOUNG MD DR: MONSERRAT/deann JOB#: [id number] / [id number]
[2019-04-29 13:03] LABS: THYROID STIM HORMONE (TSH) 3.5 uIU/mL (0.358-3.740)
== END 2019-04-28 14:23 | disposition home or self-care (01) ==
LOC: ER 14:05 → 1 SOUTH 16:49
PROVIDERS: ADMIT Internal Medicine; ATTEND Internal Medicine
DX: R07.89 Other chest pain (principal); I25.10 Atherosclerotic heart disease of native coronary artery without angina pectoris; I42.9 Cardiomyopathy, unspecified; E78.5 Hyperlipidemia, unspecified; G47.33 Obstructive sleep apnea (adult) (pediatric); E11.22 Type 2 diabetes mellitus with diabetic chronic kidney disease; I13.0 Hypertensive heart and chronic kidney disease with heart failure and stage 1 through stage 4 chronic kidney disease, or unspecified chronic kidney disease; N18.9 Chronic kidney disease, unspecified; I50.22 Chronic systolic (congestive) heart failure; N17.9 Acute kidney failure, unspecified; D63.1 Anemia in chronic kidney disease; I25.2 Old myocardial infarction; Z82.49 Family history of ischemic heart disease and other diseases of the circulatory system; Z83.3 Family history of diabetes mellitus
CPT/HCPCS: 36415; 71045; 80053; 80061; 80307; 81001; 82947; 83690; 83735; 84443; 84484; 85025; 85610; 85730; 93005; 96372; 99284; G0378; J1815; G0379; J7030

== ENCOUNTER → 2020-09-03 | Outpatient (CLI) | payer BC ==
[~2020-09-03] MED LIST changes: +AMLO-186 PO; +BUME2TAB3 PO; +MAGN400T22 PO
[2020-09-03 10:34] LABS: BACTERIA,URINE 0 /HPF (0-FEW); BILIRUBIN,URINE NEG (NEG); CLARITY,URINE CLEAR; COLOR,URINE YELLOW; GLUCOSE,URINE 500 mg/dL (NEG); NITRITE,URINE NEG (NEG); SQUAMOUS EPITHELIAL CELL,UR FEW /LPF; UROBILINOGEN,URINE 0.2 mg/dL (0.2 mg/dL)
[2020-09-03 11:36] LABS: ALBUMIN 3.1 g/dL (3.4-5.0); CALCIUM 8.7 mg/dL (8.5-10.1); CREATININE 2.4 mg/dL (0.7-1.3); PHOSPHORUS 3.5 mg/dL (2.6-4.7); POTASSIUM 4.1 mmol/L (3.5-5.1)
[2020-09-03 13:30] LABS: CREATININE,RANDOM URINE 18.6 mg/dL (Not Establ.)
[2020-09-04 03:07] LABS: MICROALB RD UR 591.6 ug/mL (Not Estab.)
== END ==
LOC: LAB 08:42
PROVIDERS: ATTEND Internal Medicine Nephrology
DX: I12.9 Hypertensive chronic kidney disease with stage 1 through stage 4 chronic kidney disease, or unspecified chronic kidney disease (principal); N18.30 Chronic kidney disease, stage 3 unspecified; E11.22 Type 2 diabetes mellitus with diabetic chronic kidney disease; E11.9 Type 2 diabetes mellitus without complications; N25.81 Secondary hyperparathyroidism of renal origin; R80.9 Proteinuria, unspecified; D64.9 Anemia, unspecified; I50.9 Heart failure, unspecified; G47.30 Sleep apnea, unspecified; Z68.36 Body mass index [BMI] 36.0-36.9, adult
CPT/HCPCS: 36415; 80069; 81001; 82043; 82570; 84156

== ENCOUNTER → 2020-10-21 | Outpatient (CLI) | payer BC ==
[~2020-10-21] MED LIST changes: -CLIN300C8 PO; +CLIN300C9 PO
--- NOTE | 2020-10-21 11:54 | RAD ---
INDICATION: Reason: ACUTE KIDNEY FAILURE / Spl. Instructions: / History: COMPARISON: None. TECHNIQUE: Grayscale and color ultrasound images obtained of the bilateral kidneys and bladder. FINDINGS: Right Kidney: 112 mm. No hydronephrosis. Left Kidney: 116 mm. No hydronephrosis. Bladder: No gross abnormality. IMPRESSION: * No hydronephrosis bilaterally. Electronically signed by: Elias Lawrence MD (10/21/2020 11:52 AM) [id number]
== END ==
LOC: US 10:07
PROVIDERS: ATTEND Internal Medicine Nephrology
DX: N17.9 Acute kidney failure, unspecified (principal)
CPT/HCPCS: 76770

== ENCOUNTER 2021-09-18 09:08 | Emergency (ER) | payer BC ==
[~2021-09-18] VITALS: Ht 175.3 cm; Wt 113.4 kg
[~2021-09-18 09:08] MED LIST changes: +CLIN-95 PO; -CLIN300C9 PO; -CYCL-331 PO; +CYCL10TA19 PO; -LISI-338 PO; -LISI40TA PO; +LISI40TA6 PO; +LISI5TAB15 PO; +POTA-121 PO; -POTA20TA4 PO
--- NOTE | 2021-09-18 10:26 | PHYS DOC ---
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 Patient reports his neck pain is a 10-10 when he wakes up and it is difficult to turn his head to the left, took 2 [id number] ibuprofen this morning with some relief in neck pain. Patient denies recent fever or chills. Denies injury to his neck. Denies any physical that may have caused strain to his neck. Patient denies dizziness, visual disturbances, syncopal or near syncopal episodes. Patient denies chest pain or chest palpitations. Patient denies chest or nasal congestion. Patient does report a past medical history of hypertension, type 2 diabetes, cardiomyopathy. Patient reports his primary care physician is Dr. Johnson. He sees a cardiology nurse practitioner for routine cardiomyopathy checkups. Patient denies recent illnesses. Patient denies other people living in his home with similar symptoms. Patient denies other physical complaints or physical concerns. (JONO BECK APRN) Review of Systems Review of Systems 14 body systems of review of systems have been reviewed. See HPI for pertinent positives and negative responses, otherwise all other systems are negative, nonpertinent or noncontributory. Constitutional: Negative except as outlined in HPI above. Skin: Negative except as outlined in HPI above. Eyes: Negative except as outlined in HPI above. HENT: Negative except as outlined in HPI above. Respiratory: Negative except as outlined in HPI above. Cardiovascular: Negative except as outlined in HPI above. GI: Negative except as outlined in HPI above. : Negative except as outlined in HPI above. Musculoskeletal: Negative except as outlined in HPI above. Integument: Negative except as outlined in HPI above. Neurologic: Negative except as outlined in HPI above. Endocrine: Negative except as outlined in HPI above. Lymphatic: Negative except as outlined in HPI above. Psychiatric: Negative except as outlined in HPI above. (JONO BECK APRN) Allergies Allergies Allergies Coded Allergies Type Severity Reaction Last Updated Verified No Known Drug Allergies 04/11/19 No (JONO BECK APRN) Physical Exam Physical Exam Constitutional: Well developed, well nourished, no acute distress, non-toxic appearance. 50-year-old male in no apparent distress. HENT: Normocephalic, atraumatic. Oropharynx moist, pink, no deep tissue infectious process appreciated, no drooling, no trismus, no lymphadenopathy of the head or neck appreciated. Bilateral TMs within normal limits. Eyes: Conjunctiva normal, no discharge. Neck: No stridor, no C-spine pain, no nuchal rigidity, no meningismus signs, patient does have muscular spasm along trapezius of the left. No torticollis appreciated. Limited passive range of motion related to pain. Cardiovascular: No cyanosis appreciated, distal cap refill less than 2 seconds. Lungs & Thorax: Patient is in no respiratory distress, no audible adventitious lung sounds appreciated. Abdomen: Nontender, no abnormalities noted. Skin: Warm, dry, no erythema, no rash. Back: No tenderness, no deformities. No midline vertebral spinal pain to palpation. Extremities: No tenderness, no cyanosis, no clubbing, ROM intact, no edema. Bilateral upper extremity radial pulses 2+. Neurologic: Alert and oriented X 3, normal motor function, normal sensory function, no focal deficits noted. Psychologic: Affect normal, judgement normal, mood normal. (JONO BECK APRN) Current Patient Data Vital Signs Vital Signs Date Time Temp Pulse Resp B/P (MAP) Pulse Ox O2 Delivery O2 Flow Rate FiO2 09/18/21 09:50 98.6 89 18 151/85 (107) 96 Room Air (JONO BECK APRN) EKG EKG [] (JONO BECK APRN) Radiology/Procedures Radiology/Procedures [] (JONO BECK APRN) Heart Score C/O Chest Pain: No Risk Factors: Risk Factors: DM, Current or recent (<one month) smoker, HTN, HLP, family history of CAD, obesity. Risk Scores: Risk Factors: DM, Current or recent (<one month) smoker, HTN, HLP, family history of CAD, obesity. (JONO BECK APRN) Course & Med Decision Making Course & Med Decision Making Pertinent Labs and Imaging studies reviewed. (See chart for details) 50-year-old male, vital signs reviewed, presents emergency department complaining of stiff neck on the left for the past 2 days. Physical examination consistent with stiff neck versus musculoskeletal neck strain. Discussed with patient will prescribe muscle relaxers, will give IM injection of Toradol in the ED today, will prescribe 600 mg ibuprofen, moist heat to stiff neck area 30 minutes on 30 minutes off for the next 48 to 72 hours while awake, discussed return ER precautions or concerns, follow-up with Dr. Johnson this week for ongoing neck discomfort. 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 Patient gave verbal understanding of and is amenable to ED discharge planning. Discussed with the patient all findings and diagnostic testing as well as the n eed to follow-up with their primary care provider for further evaluation and treatment or return to the ED if any new or worsening symptoms. Strict return precautions were also discussed at length, the patient voiced understanding and agreement with the discharge planning. The patient was nontoxic in appearance, in no apparent distress, and hemodynamically stable at the time of disposition. (JONO BECK APRN) Course & Med Decision Making I was the Attending physician on the above date of service of this patient. This patient was evaluated, examined, treated, and dispositioned from the emergency department by the mid-level practitioner. Although I was working at the time , no assistance was requested. Electronically signed, Thomas Javier DO (THOMAS JAVIER DO) Juan Manuel Disclaimer Dragon Disclaimer This electronic medical record was generated, in whole or in part, using a voice recognition dictation system. (JONO BECK APRN) Departure Departure: Impression: Primary Impression: Acute muscle stiffness of neck Disposition: HOME / SELF CARE / HOMELESS Condition: GOOD Referrals: CHAI JOHNSON MD (PCP) Additional Instructions: You were seen today in the emergency department for muscle stiffness to your neck on the left had for the past 2 days. As we discussed, I am prescribing you a muscle relaxer to help alleviate your symptoms, please do not drive or operate heavy machinery while taking this medication, I am also prescribing you ibuprofen to take for swelling and discomfort, please take as directed. We had discussed using moist heat to the stiff muscle area 30 minutes on 30 minutes off while awake for the next 48-72 hours. If you are not noticing an alleviation in neck pain over the next 2 to 3 days, please follow-up with Dr. Johnson for ongoing evaluation of neck pain. Return to the emergency department for worsening symptoms, development of fever or chills, dizziness, passing out spells, or other concerns. Thank you for visiting our Emergency Department. It was a pleasure taking care of you today in the emergency department and we appreciate you trusting us with your care. If any additional problems come up do n't hesitate to return to visit us. Please follow up with your primary care provider so they can plan additional care if needed and know about the problem that you had. If symptoms worsen come back to the Emergency Department. Any concerning symptoms that start such as chest pain, shortness of air, weakness or numbness on one side of the body, running high fevers or any other concerning symptoms return to the ER. Scripts Ibuprofen (IBUPROFEN) 600 Mg Tablet 600 MG PO PRN Q4-6HRS PRN for neck pain, #30 TAB 0 Refills Prov: JONO BECK APRN 09/18/21 Cyclobenzaprine Hcl (CYCLOBENZAPRINE HCL) 10 Mg Tablet 1 TAB PO TID PRN PRN for PAIN, #12 TAB 0 Refills Prov: JONO BECK APRN 09/18/21 JONO BECK APRN Sep 18, 2021 10:26 THOMAS JAVIER DO Sep 21, 2021 06:53
[2021-09-18] MEDS ORDERED: IBUP600T16 PO (10:42)
[2021-09-18] MEDS ORDERED: CYCL10TA19 PO (10:42)
[2021-09-18] MEDS ORDERED: KETOROLAC 60 MG/2 ML VIAL. IM ONE (10:45)
[2021-09-18 11:20] VITALS: BP 150/73
== END 2021-09-18 11:20 | disposition home or self-care (01) ==
LOC: ER 09:08
DX: M43.6 Torticollis (principal); M54.2 Cervicalgia; I25.10 Atherosclerotic heart disease of native coronary artery without angina pectoris; E11.9 Type 2 diabetes mellitus without complications; Z86.2 Personal history of diseases of the blood and blood-forming organs and certain disorders involving the immune mechanism
CPT/HCPCS: 96372; 99283; J1885

== ENCOUNTER 2022-02-04 16:26 | Emergency (ER) | payer BC ==
[~2022-02-04] VITALS: Ht 175.3 cm; Wt 111.0 kg
[~2022-02-04 16:26] MED LIST changes: +IBUP600T16 PO
--- NOTE | 2022-02-04 16:35 | PHYS DOC ---
Past History Past Medical History: Anemia, CAD, Diabetes, Other Additional Past Medical Histor: cardiomyopathy Past Surgical History: Other Additional Past Surgical Histo: infection debriedment bilateral lower extremeties Smoking: Non-smoker Alcohol Use: None Drug Use: None General Adult HPI: HPI: Patient is a 51 year old male brought in by EMS, from home, for evaluation of dizziness and fatigue symptoms. He denies chest pain. He reports that he felt slightly short of breath while he was exerting him and working outside for several hours today, though he denies any current dyspnea. He denies diaphoresis, syncope or near syncope. Denies headache. Denies vision changes. He denies numbness, tingling, focal motor weakness. He denies fevers or chills. 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 He then went home and spent several hours doing yard work for his mother. He reports he feels much better now. He felt that perhaps his symptoms were secondary to his diabetes, he checked his blood sugar and noticed glucose in the 300s. He took a dose of his Lantus. He takes no fast acting insulin. Glucose in route was in the 200s. He has no specific complaints other than feeling slightly tired right now. Review of Systems: Review of Systems: Constitutional: Denies fever or chills Eyes: Denies change in visual acuity, denies vision loss HENT: Denies nasal congestion or sore throat Respiratory: Denies cough or hemoptysis. Reports mild dyspnea while outside, denies currently. Cardiovascular: Denies chest pain or palpitations. Chronic and unchanged lower extremity edema. Denies syncope. GI: Denies abdominal pain, nausea, vomiting, bloody stools or diarrhea : Denies urinary symptoms. Musculoskeletal: Denies back pain or joint pain Integument: Denies rash Neurologic: Denies headache, focal weakness or sensory changes. He does report mild dizziness/lightheadedness. Denies vertigo. Denies head injury. Denies syncope. Psychiatric: Denies depression or anxiety Allergies: Allergies: Allergies Coded Allergies Type Severity Reaction Last Updated Verified No Known Drug Allergies 04/11/19 No Physical Exam: PE: Constitutional: Well developed, well nourished, no acute distress, non-toxic appearance. [] HENT: Normocephalic, atraumatic, bilateral external ears normal, oropharynx moist, no oral exudates, nose normal. [] Eyes: PERRLA, EOMI, conjunctiva normal, no discharge. [] Neck: Normal range of motion, no tenderness, supple, no stridor. [] Cardiovascular:Heart rate regular rhythm, +2 radial and +2 PT pulses bilaterally. Lungs & Thorax: Bilateral breath sounds clear to auscultation, no R/R/W Abdomen: Bowel sounds normal, soft, no tenderness, no masses, no pulsatile masses. No CVA tenderness. Skin: Warm, dry, no erythema. Venous stasis dermatitis bilateral lower extremities. No open wounds. No jaundice. Back: No tenderness, no CVA tenderness. [] Extremities: No tenderness, no cyanosis, no clubbing, ROM intact, bilateral +1 lower extremity, symmetric non-pitting edema. No calf tenderness. Neurologic: Alert and oriented X 3, normal motor function, normal sensory function, no focal deficits noted. [] Psychologic: Affect normal, judgement normal, mood normal. He is pleasant and cooperative. EKG: EKG: EKG is interpreted at 1650 Rhythm is sinus Rate is 70 bpm [place] is left No STEMI Radiology/Procedures: Radiology/Procedures: IMAGING REPORT Signed PATIENT: GARRET WATTS ACCOUNT: [id number] : 1970 LOCATION: ER AGE: 51 SEX: M EXAM STATUS: REG ER ORD. PHYSICIAN: SHERIF COE DO REASON: dizzy PROCEDURE: PORTABLE CHEST 1V Chest AP portable at 1716: Reason for examination: Dizziness. Comparison is made to previous study dated 04/27/2019. The heart size is upper normal. Mediastinum is unremarkable. Lung jean are clear. No acute bony abnormalities are seen. Impression: No acute cardiopulmonary disease. Electronically signed by: Zhane Servin MD (02/04/2022 5:59 PM) [facility] DICTATED AND SIGNED BY: ZHANE SERVIN MD DATE: 02/04/221757 CC: CHAI GOMEZ MD; SHERIF COE DO ~ Heart Score: C/O Chest Pain: No Risk Factors: Risk Factors: DM, Current or recent (<one month) smoker, HTN, HLP, family history of CAD, obesity. Risk Scores: Score 0 - 3: 2.5% MACE over next 6 weeks - Discharge Home Score 4 - 6: 20.3% MACE over next 6 weeks - Admit for Clinical Observation Score 7 - 10: 72.7% MACE over next 6 weeks - Early Invasive Strategies Course & Med Decision Making: Course & Med Decision Making Pertinent Labs and Imaging studies reviewed. (See chart for details) The patient is resting comfortably. He appears well overall. No acute ischemia on EKG. I did order a 500 mL normal saline bolus. His CK is mildly elevated. Troponin is not indicative of acute ischemia, and not unexpected given chronic kidney disease, elevated CK and chronic cardiomyopathy. EKG does not demon strate any acute ischemia. I have ordered a second troponin, for 3-hour troponin, with serial EKG accompanying. I am transferring care to Dr. Madrigal at 1800. Dragon Disclaimer: [place] Disclaimer: This electronic medical record was generated, in whole or in part, using a voice recognition dictation system. Departure Departure: Impression: Primary Impression: Dizziness Additional Impressions: Heat exposure Qualified Codes: T67.9XXA - Effect of heat and light, unspecified, initial e ncounter Chronic kidney disease Qualified Codes: N18.9 - Chronic kidney disease, unspecified Elevated CK Condition: STABLE Referrals: CHAI GOMEZ MD (PCP) Patient Instructions: Heat Disorders Additional Instructions: Return to the ER for chest pain, severe shortness of breath, severe dizziness, fall, head injury, passing out, focal weakness, vomiting, dehydration or other concerns. Stay hydrated, avoid the heat, stay inside where it is cool. Please follow-up with your primary care physician for routine care and for follow-up of your current symptoms. SHERIF COE DO February 04, 2022 16:35
[2022-02-04] MEDS ORDERED: IV NORMAL SALINE 500ML 500 ML IV ONE ×2 (17:00→18:30)
[2022-02-04 17:40] LABS: BASO # 0.1 x10^3/uL (0.0-0.2); BASO % 1 % (0-3); EOS # 0.2 x10^3/uL (0.0-0.7); EOS % 2 % (0-3); HEMATOCRIT 32.6 % (39.0-53.0); HEMOGLOBIN 11.1 g/dL (13.0-17.5); LYMPH # 1.2 x10^3/uL (1.0-4.8); LYMPH % 11 % (24-48); MEAN CORPUSCULAR HEMOGLOBIN 34 pg (25-35); MEAN CORPUSCULAR HGB CONC 34 g/dL (31-37); MEAN CORPUSCULAR VOLUME 101 fL (79-100); MONO # 0.8 x10^3/uL (0.0-1.1); MONO % 7 % (0-9); NEUT # 8.2 x10^3uL (1.8-7.7); NEUT % 78 % (31-73); PLATELET COUNT 241 x10^3/uL (140-400); RED BLOOD COUNT 3.24 x10^6/uL (4.30-5.70); RED CELL DISTRIBUTION WIDTH 13.8 % (11.5-14.5); WHITE BLOOD COUNT 10.5 x10^3/uL (4.0-11.0)
[2022-02-04 17:56] LABS: CALCIUM 8.7 mg/dL (8.5-10.1); CREATININE 3.5 mg/dL (0.7-1.3); GFR 22.5
[2022-02-04 17:58] LABS: CLARITY,URINE CLEAR; COLOR,URINE YELLOW; GLUCOSE,URINE >=1000 mg/dL (NEG)
[2022-02-04 17:59] LABS: BACTERIA,URINE 0 /HPF (0-FEW); NITRITE,URINE NEG (NEG); RBC,URINE 0 /HPF (0-2); SQUAMOUS EPITHELIAL CELL,UR OCC /LPF; UROBILINOGEN,URINE 0.2 mg/dL (0.2 mg/dL); WBC,URINE 0 /HPF (0-4)
--- NOTE | 2022-02-04 18:01 | RAD ---
Chest AP portable at 1716: Reason for examination: Dizziness. Comparison is made to previous study dated 04/27/2019. The heart size is upper normal. Mediastinum is unremarkable. Lung jean are clear. No acute bony abn ormalities are seen. Impression: No acute cardiopulmonary disease. Electronically signed by: Zhane Wei MD (02/04/2022 5:59 PM) YOHANNES
[2022-02-04 18:08] LABS: ALBUMIN 3.2 g/dL (3.4-5.0); ALBUMIN/GLOBULIN RATIO 0.9 (1.0-1.7); MAGNESIUM 2.1 mg/dL (1.8-2.4); PHOSPHORUS 4.4 mg/dL (2.6-4.7); TOTAL PROTEIN 6.8 g/dL (6.4-8.2)
[2022-02-04] MEDS ORDERED: FUROSEMIDE 40 MG/4 ML VIAL IVP ONE (20:15)
[2022-02-04 21:15] LABS: INFLUENZA A PATIENT NEGATIVE (NEGATIVE); INFLUENZA B PATIENT NEGATIVE (NEGATIVE)
[2022-02-05] MEDS ORDERED: cloNIDine HCL 0.1 MG TABLET PO ONE (03:45)
[2022-02-05] MEDS ORDERED: cloNIDine TTS-2 1 PATCH PATCH TD ONE (03:45)
[2022-02-05 05:35] VITALS: BP 146/84
== END 2022-02-05 05:50 | disposition short-term general hospital (02) ==
LOC: ER 16:26
DX: T67.5XXA Heat exhaustion, unspecified, initial encounter (principal); I13.10 Hypertensive heart and chronic kidney disease without heart failure, with stage 1 through stage 4 chronic kidney disease, or unspecified chronic kidney disease; E11.22 Type 2 diabetes mellitus with diabetic chronic kidney disease; N18.9 Chronic kidney disease, unspecified; D64.9 Anemia, unspecified; N17.9 Acute kidney failure, unspecified; R74.8 Abnormal levels of other serum enzymes; R42 Dizziness and giddiness; I25.10 Atherosclerotic heart disease of native coronary artery without angina pectoris; Z20.822 Contact with and (suspected) exposure to COVID-19; Z86.2 Personal history of diseases of the blood and blood-forming organs and certain disorders involving the immune mechanism; X58.XXXA Exposure to other specified factors, initial encounter; Y93.89 Activity, other specified; Y92.89 Other specified places as the place of occurrence of the external cause; Y99.8 Other external cause status
CPT/HCPCS: 36415; 71045; 80053; 81001; 82550; 83735; 83880; 84100; 84484; 85025; 85610; 85730; 87428; 93005; 96361; 96374; 99285; J1940; J7040